=== PATIENT | female | born 1945 | race Caucasian/White ===

== ENCOUNTER 2017-06-10 19:42 | Inpatient (IN) | payer MEDICARE, BC ==
--- NOTE | 2017-06-10 19:58 | EDM.PDOC ---
ED HPI GENERAL MEDICAL PROBLEM - General Chief Complaint: Respiratory Problem Stated Complaint: SHORTNESS OF BREATH Time Seen by Provider: 06/10/17 19:58 Source of Information: Reports: Patient, Family (Daughter, ) History Limitations: Reports: No Limitations - History of Present Illness INITIAL COMMENTS - FREE TEXT/NARRATIVE: The patient's daughter states that the patient has chronic dyspnea on exertion ( the patient believes that it is due to scoliosis), but that she has been having worsening dyspnea on exertion over the past 3 weeks, and has had dyspnea even at rest for the past week. No wheezing, cough, fever, or chest pain. The patient has chronic orthopnea, due to CHF, and sleeps at an incline, but this has not changed recently. No recent nausea, vomiting, constipation, diarrhea, or urinary symptoms. The patient states that her pants have not been getting tighter recently, indeed, she states that she has lost 8 pounds over the past 1- 2 months. The patient wears bilateral knee-high compression socks, but has not noticed an increase in lower extremity edema recently. The patient has had similar symptoms in the past, prior to starting Lasix in late 2014. The patient's daughter states that an echocardiogram performed about one week ago MAY have shown a pulmonary hypertension, but that they have not been given the official read. The patient is to follow-up with a [employer] on 07/17/2017. The patient does not have a formal diagnosis of lung disease, and does not have oxygen at home. The patient has chronic atrial fibrillation, and is on Coumadin. - Related Data Allergies Allergy/AdvReac Type Severity Reaction Status Date / Time acetaminophen [From Percocet] Allergy Other Verified 02/05/15 13:54 levofloxacin Allergy Other Verified 02/05/15 13:54 oxycodone HCl [From Percocet] Allergy Other Verified 02/05/15 13:54 Home Meds: Home Meds Aspirin [Halfprin] 81 mg PO DAILY 02/02/15 [History] Chlorella 1,000 mg PO DAILY 02/02/15 [History] Furosemide [Lasix] 20 mg PO DAILY 02/02/15 [History] Garlic 1 cap PO DAILY 02/02/15 [History] Krill/Om-3/DHA/EPA/Phospho/Ast [Krill Oil 500 mg Softgel] 330 mg PO DAILY [History] Multivitamin [Multivitamins] 1 cap PO DAILY 02/02/15 [History] [place]-3 Fatty Acids [[place]-3] 1,000 mg PO DAILY 02/02/15 [History] Omeprazole [Prilosec] 20 mg PO DAILY 02/02/15 [History] Propranolol [Inderal LA] 80 mg PO BID 02/02/15 [History] Telmisartan [Micardis] 40 mg PO BEDTIME 02/02/15 [History] Ubidecarenone [COQ-10] 100 mg PO DAILY 02/02/15 [History] Warfarin Sodium [Coumadin] 7.5 mg PO DAILY 02/02/15 [History] Warfarin [Coumadin] 5 mg PO SUTUWETHSA 02/02/15 [History] Calcium Carb & Citrate/Vit D3 [Calcium + D3 ER Tablet] 1 tab PO DAILY 06/10/17 [ History] Past Medical History Cardiovascular History: Reports: Afib (chronic), Heart Failure Social & Family History - Tobacco Use Smoking Status *Q: Never Smoker - Alcohol Use Alcohol Use History: No - Recreational Drug Use Recreational Drug Use: No - Living Situation & Occupation Living situation: Reports: , with Spouse Occupation: Retired ED ROS GENERAL - Review of Systems Review Of Systems: ROS reveals no pertinent complaints other than HPI. ED EXAM, GENERAL - Physical Exam Exam: See Below Exam Limited By: No Limitations General Appearance: Alert, WD/WN, No Apparent Distress Eye Exam: Bilateral Eye: Normal Inspection Ears: Normal External Exam, Hearing Grossly Normal Nose: Normal Inspection, No Blood Throat/Mouth: Normal Inspection, Normal Lips, Normal Voice, No Airway Compromise Head: Atraumatic, Normocephalic Neck: Normal Inspection, Full Range of Motion Respiratory/Chest: No Respiratory Distress, No Accessory Muscle Use, Decreased Breath Sounds (throughout), Crackles (bilateral, to 3/4 up, greater at the bases ). No: Rhonchi, Wheezing, Prolonged Expiration Cardiovascular: Normal Peripheral Pulses, No Edema (bilateral knee-high compression stockings on), No Gallop, No JVD, No Murmur, No Rub, Irregularly Irregular (regular rate) Peripheral Pulses: 4+: Radial (L), Radial (R) GI/Abdominal: Normal Bowel Sounds, Soft, Non-Tender, No Organomegaly, No Distention, No Abnormal Bruit, No Mass (Female) Exam: Deferred Rectal (Female) Exam: Deferred Back Exam: Normal Inspection, Full Range of Motion, NT Extremities: Normal Inspection, Normal Range of Motion, No Pedal Edema, Normal Capillary Refill Neurological: Alert, Oriented, Normal Cognition, No Motor/Sensory Deficits Psychiatric: Normal Affect Skin Exam: Warm, Dry, Intact, Normal Color, No Rash EKG INTERPRETATION EKG Date: 06/10/17 Time: 19:57 Rhythm: A-Fib Rate (Beats/Min): 73 [place]: RAD-Right [place] Deviation P-Wave: Absent QRS: Normal ST-T: Normal QT: Normal Comparison: NA - No Prior EKG Course - Vital Signs Last Recorded V/S: Last Vital Signs Temp 36.0 C 06/10/17 19:49 Pulse 102 H 06/10/17 19:49 Resp 26 H 06/10/17 19:49 BP 167/108 H 06/10/17 19:49 Pulse Ox 80 L 06/10/17 19:49 - Orders/Labs/Meds Orders: Active Orders 24 hr Category Date Time Status EKG Documentation Completion [RC] ASDIRECTED Care 06/10/17 19:51 Active Chest 2V [CR] Stat Exams 06/10/17 20:21 Taken Chest w Cont [CT] Stat Exams 06/10/17 22:06 Taken CULTURE BLOOD [BC] Stat Lab 06/10/17 20:45 Received CULTURE BLOOD [BC] Stat Lab 06/10/17 20:45 Received Blood Culture x2 Reflex Set [OM.PC] Stat Oth 06/10/17 20:21 Ordered EKG 12 Lead [EK] Stat Ther 06/10/17 19:51 Ordered Labs: Laboratory Tests 06/10/17 06/10/17 06/10/17 Range/Units 20:45 20:45 20:45 WBC 15.45 H (3.98-10.04) K/mm3 RBC 4.63 (3.98-5.22) M/mm3 Hgb 13.3 (11.2-15.7) gm/L Hct 38.9 (34.1-44.9) % MCV 84.0 (79.4-94.8) fl MCH 28.7 (25.6-32.2) pg MCHC 34.2 (32.2-35.5) g/dl RDW Std Deviation 41.3 (36.4-46.3) fL Plt Count 324 (182-369) K/mm3 MPV 10.1 (9.4-12.3) fl Neutrophils % (Manual) 84 H (40-60) % Band Neutrophils % 0 (0-10) % Lymphocytes % (Manual) 8 L (20-40) % Atypical Lymphs % 0 % Monocytes % (Manual) 5 (2-10) % Eosinophils % (Manual) 3 (0.7-5.8) % Basophils % (Manual) 0 L (0.1-1.2) Platelet Estimate Adequate Plt Morphology Comment Normal RBC Morph Comment Normal PT 23.1 H (8.0-13.0) SECONDS INR 2.14 APTT 39 H (22-36) SECONDS D-Dimer, Quantitative < 0.19 L (0.19-0.59) mg/L Puncture Site ABG pH (7.35-7.45) ABG pCO2 (35.0-45.0) mmHg ABG pO2 (80.0-100.0) mmHg ABG HCO3 (22.0-26.0) meq/L ABG O2 Saturation (96.0-97.0) % ABG Base Excess (-2-2.0) Vikas Test A-a Gradient mmHg O2 Delivery Device Oxygen Flow Rate FiO2 (21.00-100.00) % Sodium 123 L (136-145) mEq/L Potassium 3.8 (3.5-5.1) mEq/L Chloride 84 L (98-107) mEq/L Carbon Dioxide 32 (21-32) mEq/L Anion Gap 10.8 (5-15) BUN 9 (7-18) mg/dL Creatinine 0.6 (0.55-1.02) mg/dL Est Cr Clr Drug Dosing 72.17 mL/min Estimated GFR (MDRD) > 60 (>60) mL/min BUN/Creatinine Ratio 15.0 (14-18) Glucose 123 H (80-115) mg/dL Lactic Acid (0.4-2.0) mmol/L Calcium 9.0 (8.5-10.1) mg/dL Total Bilirubin 2.2 H (0.2-1.0) mg/dL AST 20 (15-37) U/L ALT 25 (14-59) U/L Alkaline Phosphatase 55 (46-116) U/L Troponin I < 0.017 (0.00-0.056) ng/mL NT-Pro-B Natriuret Pep (0-125) pg/mL Total Protein 7.7 (6.4-8.2) g/dl Albumin 3.5 (3.4-5.0) g/dl Globulin 4.2 gm/dL Albumin/Globulin Ratio 0.8 L (1-2) 06/10/17 06/10/17 06/10/17 Range/Units 20:45 20:45 21:00 WBC (3.98-10.04) K/mm3 RBC (3.98-5.22) M/mm3 Hgb (11.2-15.7) gm/L Hct (34.1-44.9) % MCV (79.4-94.8) fl MCH (25.6-32.2) pg MCHC (32.2-35.5) g/dl RDW Std Deviation (36.4-46.3) fL Plt Count (182-369) K/mm3 MPV (9.4-12.3) fl Neutrophils % (Manual) (40-60) % Band Neutrophils % (0-10) % Lymphocytes % (Manual) (20-40) % Atypical Lymphs % % Monocytes % (Manual) (2-10) % Eosinophils % (Manual) (0.7-5.8) % Basophils % (Manual) (0.1-1.2) Platelet Estimate Plt Morphology Comment RBC Morph Comment PT (8.0-13.0) SECONDS INR APTT (22-36) SECONDS D-Dimer, Quantitative (0.19-0.59) mg/L Puncture Site Lt radial ABG pH 7.36 (7.35-7.45) ABG pCO2 61.8 H (35.0-45.0) mmHg ABG pO2 79.0 L (80.0-100.0) mmHg ABG HCO3 33.9 H (22.0-26.0) meq/L ABG O2 Saturation 95.6 L (96.0-97.0) % ABG Base Excess 6.9 H (-2-2.0) Vikas Test Positive A-a Gradient 23 mmHg O2 Delivery Device Nasal cannula Oxygen Flow Rate 2.0 FiO2 28.00 (21.00-100.00) % Sodium (136-145) mEq/L Potassium (3.5-5.1) mEq/L Chloride (98-107) mEq/L Carbon Dioxide (21-32) mEq/L Anion Gap (5-15) BUN (7-18) mg/dL Creatinine (0.55-1.02) mg/dL Est Cr Clr Drug Dosing mL/min Estimated GFR (MDRD) (>60) mL/min BUN/Creatinine Ratio (14-18) Glucose (80-115) mg/dL Lactic Acid 0.9 (0.4-2.0) mmol/L Calcium (8.5-10.1) mg/dL Total Bilirubin (0.2-1.0) mg/dL AST (15-37) U/L ALT (14-59) U/L Alkaline Phosphatase (46-116) U/L Troponin I (0.00-0.056) ng/mL NT-Pro-B Natriuret Pep 1736 H (0-125) pg/mL Total Protein (6.4-8.2) g/dl Albumin (3.4-5.0) g/dl Globulin gm/dL Albumin/Globulin Ratio (1-2) Meds: Medications Discontinued Medications Generic Name Dose Route Start Last Admin Trade Name Freq PRN Reason Stop Dose Admin Azithromycin 500 mg 06/11/17 00:11 Zithromax PO 06/11/17 00:12 ONETIME STA Iopamidol 80 ml 06/10/17 22:20 06/10/17 23:06 Isovue-300 (61%) IVPUSH 06/10/17 22:21 80 ml ONETIME ONE Administration - Re-Assessments/Exams Free Text/Narrative Re-Assessment/Exam: 06/10/17 20:40 Two-view chest radiograph reviewed. Cardiac silhouette is at the upper limits of normal, but minimal, if any, pulmonary vascular congestion to suggest decompensated CHF. No pleural effusions. No focal infiltrate. No pneumothorax. Significant thoracolumbar scoliosis, and kyphosis, noted. Formal read per the Radiologist pending. 06/10/17 21:14 The patient's ABG represents a chronic (compensated) respiratory acidosis. 06/10/17 22:11 Test results discussed with Dr. Gregorio at 21:59. There is no obvious expiration for the patient's progressively worsening dyspnea, however, her ECG shows a QRS axis of 111, with likely right ventricular hypertrophy. I suspect that the patient has pulmonary hypertension, and since the remainder of her workup is unremarkable, that is the most likely explanation for her symptoms. Dr. Gregorio does not feel that the patient requires admission to the hospital, but she is recommending a CT of the chest with IV contrast, which I have ordered. The patient may be slightly volume overloaded, therefore I have not ordered concomitant IV fluid. The patient's sodium returned low at 123. This is likely due to Lasix. Her WBC count is elevated at 50.45, but with 0% bandemia, and no findings suggestive of an infection. Presuming the CT scan of the chest does not discover any new findings, I will see if I can arrange for home oxygen for the patient on discharge. 06/10/17 23:32 CT of the chest with IV contrast is read by [facility] as: Small reticular nodular densities in the right midlung field best seen on axial images series 3, image 27 through 33. As per Fleischner Society guidelines for follow-up and management of pulmonary nodules: For patients at low risk (minimal or absent history of smoking and of other known risk factors), recommend follow-up chest CT at 12 months; if unchanged, no further follow-up. For patient at high risk (history of smoking or of other known risk factors), recommend initial follow-up chest CT at 6-12 months, then at 18-24 months if no interval change. Small focal rounded infiltrate in the left upper lobe posteriorly measuring 12 mm. Second small nodular infiltrate in the left upper lobe measuring 8 mm. small focal rounded infiltrate in the left upper lobe measuring 12 mm. Second small nodular infiltrate in the left upper lobe measuring 8 mm. these may represent areas of rounded pneumonia. I would recommend a follow-up CAT scan in approximate 4-6 weeks to verify stability or resolution (sic) (emphasis mine) 06/11/17 00:13 While the patient reports progressively worsening dyspnea on exertion, she has not had a cough or fever. She has an elevated WBC count, but no left shift. It is not clear that she has pneumonia, despite the CT findings, nevertheless, I believe it would be prudent to treat the patient for possible pneumonia. As the patient is allergic to Levaquin, I will start her on oral azithromycin. 06/11/17 00:29 Test results discussed with the patient, her daughter, and . They are concerned about the patient going home, primarily because the patient is so weak that she has difficulty walking, and arranging oxygen tonight would be difficult. Currently the patient's oxygen saturation is 93% on 1 L, but 87% on room air. Even if we were to send the patient home with an oxygen tank, it would only last 8 hours at 1 L/hr. Other arrangements will have to be made within 8 hours, which is not likely possible. The other option would be to have [employer] deliver oxygen to the patient's house, however, the patient would have to pay for that out of pocket until she qualified for home oxygen. Case re-discussed with Dr. Gregorio at 00:26. She believes that the patient would qualify for admission based on a diagnosis of pneumonia, hypoxemia, and hyponatremia. Departure - Departure Time of Disposition: 00:30 Disposition: Admitted As Inpatient 68 Condition: Fair Clinical Impression: Pneumonia, Hypoxemia, Hyponatremia - Discharge Information - My Orders Last 24 Hours: My Active Orders 06/10/17 19:51 EKG Documentation Completion [RC] ASDIRECTED EKG 12 Lead [EK] Stat 06/10/17 20:21 Chest 2V [CR] Stat Blood Culture x2 Reflex Set [OM.PC] Stat 06/10/17 20:45 CULTURE BLOOD [BC] Stat CULTURE BLOOD [BC] Stat 06/10/17 22:06 Chest w Cont [CT] Stat - Assessment/Plan Last 24 Hours: My Active Orders 06/10/17 19:51 EKG Documentation Completion [RC] ASDIRECTED EKG 12 Lead [EK] Stat 06/10/17 20:21 Chest 2V [CR] Stat Blood Culture x2 Reflex Set [OM.PC] Stat 06/10/17 20:45 CULTURE BLOOD [BC] Stat CULTURE BLOOD [BC] Stat 06/10/17 22:06 Chest w Cont [CT] Stat
[2017-06-10] MEDS ORDERED: Iopamidol 612 MG/ML 100 ML Bottle IVPUSH ONE (22:20)
[2017-06-11] MEDS ORDERED: Azithromycin 250 MG Tab PO STA (00:11)
[2017-06-11] MEDS ORDERED: Acetaminophen 325 MG Tab PO PRN (01:12)
[2017-06-11] MEDS ORDERED: Albuterol 0.083% 2.5 MG/3 ML Neb Soln NEB PRN (01:12)
[2017-06-11] MEDS ORDERED: Temazepam 7.5 MG Cap PO PRN (01:12)
[2017-06-11] MEDS ORDERED: Sodium Chloride 0.9% 1,000 ML IV SCH (01:30)
[2017-06-11] MEDS ORDERED: Enoxaparin 30 MG/0.3 ML Syringe SUBCUT SCH (06:00)
[2017-06-11] MEDS ORDERED: Enoxaparin 40 MG/0.4 ML Syringe SUBCUT SCH (06:00)
--- NOTE | 2017-06-11 07:16 | CT ---
CT chest Technique: Multiple axial sections were obtained through the chest. Intravenous contrast was utilized. Comparison: Prior chest x-ray performed earlier on the same date (8:20 PM) Heart size mildly enlarged. No pericardial thickening is seen. Mediastinum shows small lymph nodes which are felt to be within normal limits. Low-density lesions are seen within the liver. Largest lesion has Hounsfield unit measurements of cysts and measures about 1.8 cm. Other smaller findings most likely of similar etiology. Surgical clips seen from prior cholecystectomy. Multiple nodular densities are seen within the chest. Hazy ground-glass appearance seen throughout both sides of the chest. Bone window settings were reviewed which show scattered degenerative change within the spine with scoliosis. Impression: 1. Small scattered nodular densities as well as ground-glass appearance within both lungs. Recommend treatment as a pneumonia and follow-up chest CT in 6 months to further evaluate for stability. Difficult at this time to exclude neoplasm as an etiology for the nodules. 2. Other incidental findings as noted above. Diagnostic code #9 I agree with preliminary report issued by [facility] ([facility] preliminary report dictated on 06/11/17, 12:25 AM Central Time)
--- NOTE | 2017-06-11 07:16 | CR ---
Chest: Two views of the chest were obtained. Comparison: No prior chest x-ray. Lung markings are slightly increased. No alveolar type densities are seen. Heart size is mildly enlarged. Slight tortuosity of the thoracic aorta is seen. Scoliosis is noted within the spine with mild degenerative change and kyphosis. Impression: 1. Slight increased lung markings possibly due to mild pulmonary vascular congestion. Mild cardiomegaly is noted. 2. Other incidental findings as noted above. Diagnostic code #3
[2017-06-11] MEDS ORDERED: Sodium Chloride 0.9% 250 ML ONE (08:07)
[2017-06-11] MEDS: Azithromycin 500 MG in Sodium Chloride 0.9% 250 ML IV SCH (08:48)
[2017-06-11] MEDS ORDERED: Azithromycin 500 MG AdvVial IV SCH (09:00)
[2017-06-11] MEDS: Albuterol/Ipratropium 3.0-0.5 MG/3 ML Neb Soln NEB SCH ×4 (09:07→20:41)
[2017-06-11] MEDS ORDERED: Warfarin 5 MG Tab PO SCH (11:45)
[2017-06-11] MEDS ORDERED: Ondansetron 4 MG Tab.DIS PO PRN (11:49)
[2017-06-11] MEDS ORDERED: Docusate Sodium 100 MG Cap PO PRN (11:49)
[2017-06-11] MEDS ORDERED: Ondansetron 4 MG/2 ML SDV IV PRN (11:49)
[2017-06-11] MEDS ORDERED: Magnesium Hydroxide 400 MG/5 ML Susp 30 ML Cup PO PRN (11:49)
[2017-06-11] MEDS ORDERED: Furosemide 20 MG Tab PO SCH (12:00)
[2017-06-11] MEDS ORDERED: Magnesium Oxide 400 MG Tab PO ONE (12:35)
[2017-06-11] MEDS: Aspirin 81 MG Tab.EC PO SCH (13:56)
[2017-06-11] MEDS: cefTRIAXone 2 GM in Sodium Chloride 0.9% 100 ML IV SCH (13:57)
[2017-06-11] MEDS: Potassium Chloride/Sodium Chloride Tab PO SCH ×2 (14:32→20:32)
--- NOTE | 2017-06-11 14:42 | PCM.HP ---
H&P History of Present Illness - General Date of Service: 06/11/17 Admit Problem/Dx: Admission Diagnosis/Problem Admission Diagnosis/Problem Pneumonia Source of Information: Patient, Family, Other (ED notes) History Limitations: Reports: No Limitations - History of Present Illness Initial Comments - Free Text/Narative: Aileen is a pleasant 72-year-old female admitted through the emergency room last night with pneumonia, hypoxia, dyspnea on exertion and orthopnea. The patient's daughter states that she has chronic shortness of breath and dyspnea on exertion (the patient believes that it is due to scoliosis), but that she has been progressively worsening over the past 2-3 weeks, to the point that patient has dyspnea even at rest for the past week. No wheezing, cough, fever, or chest pain. She has also had orthopnea and has had to sleep upright in the chair, not getting much rest the past week or so. No recent nausea, vomiting, constipation, diarrhea, or urinary symptoms. The patient states that her pants have not been getting tighter recently. Patient reports that she has actually lost 8 pounds over the past 1-2 months. The patient wears bilateral knee-high compression socks, but has not noticed an increase in lower extremity edema recently. The patient has had similar symptoms in the past, prior to starting Lasix in late 2014. PCP is Hermila Sheets in [place]. She did see Hermila last week for this worsening dyspnea. The patient did undergo testing including echocardiogram, what sounds like pulmonary function tests and other workup which was done between [place] and [facility]. The patient's daughter states that an echocardiogram performed during this time may have shown a pulmonary hypertension, but that they have not been given the official report. The patient is to follow-up/consult with a Technical Rep on 07/17/2017 for these ongoing symptoms. She does have history of atrial fibrillation on chronic Coumadin therapy, also reports a mitral valve problem and sees [facility] in [place]. Maria Elena Castro. The patient does not have a formal diagnosis of lung disease, and does not have oxygen at home. Again PCP is Hermila Sheets in [place]. Patient is full CODE STATUS Onset of Symptoms: Reports: Gradual (2-3 wks) Duration of Symptoms: Reports: Getting Worse Location: Reports: Chest Improves with: Reports: None Worsens with: Reports: Movement (exertion) Associated Symptoms: Reports: Loss of Appetite, Malaise, Shortness of Breath, Weakness. Denies: Confusion, Chest Pain, Cough, cough w sputum, Diaphoresis, Fever/Chills, Headaches, Nausea/Vomiting, Rash, Syncope - Related Data Allergies/Adverse Reactions: Allergies Allergy/AdvReac Type Severity Reaction Status Date / Time latex Allergy Unknown Cannot Verified 06/11/17 18:57 Remember levofloxacin Allergy Other Verified 02/05/15 13:54 oxycodone HCl [From Percocet] Allergy Other Verified 02/05/15 13:54 Home Medications: Home Meds Aspirin [Halfprin] 81 mg PO DAILY 02/02/15 [History] Chlorella 1,000 mg PO DAILY 02/02/15 [History] Furosemide [Lasix] 20 mg PO DAILY 02/02/15 [History] Garlic 1 cap PO DAILY 02/02/15 [History] Krill/Om-3/DHA/EPA/Phospho/Ast [Krill Oil 500 mg Softgel] 330 mg PO DAILY [History] Multivitamin [Multivitamins] 1 cap PO DAILY 02/02/15 [History] [place]-3 Fatty Acids [[place]-3] 1,000 mg PO DAILY 02/02/15 [History] Omeprazole [Prilosec] 20 mg PO DAILY 02/02/15 [History] Propranolol [Inderal LA] 80 mg PO BID 02/02/15 [History] Telmisartan [Micardis] 40 mg PO BEDTIME 02/02/15 [History] Ubidecarenone [COQ-10] 100 mg PO DAILY 02/02/15 [History] Warfarin Sodium [Coumadin] 7.5 mg PO MOFR 02/02/15 [History] Warfarin [Coumadin] 5 mg PO SUTUWETHSA 02/02/15 [History] Calcium Carb & Citrate/Vit D3 [Calcium + D3 ER Tablet] 1 tab PO DAILY 06/10/17 [ History] Past Medical History Cardiovascular History: Reports: Afib (chronic), Heart Failure Other Cardiovascular History: mitral valve prolapse Gastrointestinal History: Reports: GERD Oncologic (Cancer) History: Reports: Other (See Below) 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 Denies: Fever, Chills HEENT: Reports: Post Nasal Drip, Sinus Congestion. Denies: Dysphasia, Headaches , Sore Throat, Vertigo Pulmonary: Reports: Shortness of Breath. Denies: Wheezing, Pleuritic Chest Pain , Cough, Sputum, Hemoptysis Cardiovascular: Reports: Dyspnea on Exertion, Orthopnea. Denies: Chest Pain, Palpitations, Lightheadedness, Syncope Gastrointestinal: Reports: No Symptoms Genitourinary: Reports: No Symptoms Musculoskeletal: Reports: Other (generalized muscle weakness) Skin: Reports: No Symptoms Psychiatric: Reports: No Symptoms Neurological: Reports: Difficulty Walking (due to generalized weakness), Weakness. Denies: Confusion, Dizziness, Headache, Numbness, Tingling Exam - Exam Exam: See Below - Vital Signs Vital Signs: Last Vital Signs Temp 98.4 F 06/11/17 11:20 Pulse 81 06/11/17 11:20 Resp 20 06/11/17 11:20 BP 130/95 H 06/11/17 11:20 Pulse Ox 95 06/11/17 11:49 Weight: 166 lb - Exam Quality Assessment: Supplemental Oxygen, DVT Prophylaxis General: Alert, Oriented, Cooperative, Other (very pleasant and talkative but is mildly SOB with carrying on normal conversation despite supplemental O2 at 3L at time of exam) HEENT: Conjunctiva Clear, EOMI, Hearing Intact, Mucosa Moist & [place], Pupils Equal, Pupils Reactive, PERRLA Neck: Supple Lungs: Normal Respiratory Effort, Decreased Breath Sounds, Wheezing (mild to lower lobes). No: Crackles, Rales, Rub Cardiovascular: Irregular Rhythm GI/Abdominal Exam: Normal Bowel Sounds, Soft, Non-Tender (Female) Exam: Deferred Rectal (Female) Exam: Deferred Back Exam: Normal Inspection Extremities: No Pedal Edema, Normal Capillary Refill, Other (wearing teds bilat) Peripheral Pulses: 1+: Dorsalis Pedis (L), Dorsalis Pedis (R) Skin: Warm, Dry, Intact Neurological: Cranial Nerves Intact Neuro Extensive - Mental Status: Alert, Oriented x3, Normal Mood/Affect, Normal Cognition, Memory Intact Psychiatric: Alert, Normal Affect, Normal Mood - Patient Data Lab Results Last 24 hrs: Laboratory Results - last 24 hr 06/10/17 06/10/17 06/10/17 Range/Units 20:45 20:45 20:45 WBC 15.45 H (3.98-10.04) K/mm3 RBC 4.63 (3.98-5.22) M/mm3 Hgb 13.3 (11.2-15.7) gm/L Hct 38.9 (34.1-44.9) % MCV 84.0 (79.4-94.8) fl MCH 28.7 (25.6-32.2) pg MCHC 34.2 (32.2-35.5) g/dl RDW Std Deviation 41.3 (36.4-46.3) fL Plt Count 324 (182-369) K/mm3 MPV 10.1 (9.4-12.3) fl Neut % (Auto) (34.0-71.1) % Lymph % (Auto) (19.3-51.7) % Esmeralda % (Auto) (4.7-12.5) % Eos % (Auto) (0.7-5.8) Baso % (Auto) (0.1-1.2) % Neut # (Auto) (1.56-6.13) K/mm3 Lymph # (Auto) (1.18-3.74) K/mm3 Esmeralda # (Auto) (0.24-0.36) K/mm3 Eos # (Auto) (0.04-0.36) K/mm3 Baso # (Auto) (0.01-0.08) K/mm3 Neutrophils % (Manual) 84 H (40-60) % Band Neutrophils % 0 (0-10) % Lymphocytes % (Manual) 8 L (20-40) % Atypical Lymphs % 0 % Monocytes % (Manual) 5 (2-10) % Eosinophils % (Manual) 3 (0.7-5.8) % Basophils % (Manual) 0 L (0.1-1.2) Platelet Estimate Adequate Plt Morphology Comment Normal RBC Morph Comment Normal PT 23.1 H (8.0-13.0) SECONDS INR 2.14 APTT 39 H (22-36) SECONDS D-Dimer, Quantitative < 0.19 L (0.19-0.59) mg/L Puncture Site ABG pH (7.35-7.45) ABG pCO2 (35.0-45.0) mmHg ABG pO2 (80.0-100.0) mmHg ABG HCO3 (22.0-26.0) meq/L ABG O2 Saturation (96.0-97.0) % ABG Base Excess (-2-2.0) Vikas Test A-a Gradient mmHg O2 Delivery Device Oxygen Flow Rate FiO2 (21.00-100.00) % Sodium 123 L (136-145) mEq/L Potassium 3.8 (3.5-5.1) mEq/L Chloride 84 L (98-107) mEq/L Carbon Dioxide 32 (21-32) mEq/L Anion Gap 10.8 (5-15) BUN 9 (7-18) mg/dL Creatinine 0.6 (0.55-1.02) mg/dL Est Cr Clr Drug Dosing 72.17 mL/min Estimated GFR (MDRD) > 60 (>60) mL/min BUN/Creatinine Ratio 15.0 (14-18) Glucose 123 H (80-115) mg/dL Lactic Acid (0.4-2.0) mmol/L Calcium 9.0 (8.5-10.1) mg/dL Magnesium (1.8-2.4) mg/dl Total Bilirubin 2.2 H (0.2-1.0) mg/dL AST 20 (15-37) U/L ALT 25 (14-59) U/L Alkaline Phosphatase 55 (46-116) U/L Troponin I < 0.017 (0.00-0.056) ng/mL C-Reactive Protein (<1.0) mg/dL NT-Pro-B Natriuret Pep (0-125) pg/mL Total Protein 7.7 (6.4-8.2) g/dl Albumin 3.5 (3.4-5.0) g/dl Globulin 4.2 gm/dL Albumin/Globulin Ratio 0.8 L (1-2) Mycoplasma pneumon IgM (NEGATIVE) 06/10/17 06/10/17 06/10/17 Range/Units 20:45 20:45 21:00 WBC (3.98-10.04) K/mm3 RBC (3.98-5.22) M/mm3 Hgb (11.2-15.7) gm/L Hct (34.1-44.9) % MCV (79.4-94.8) fl MCH (25.6-32.2) pg MCHC (32.2-35.5) g/dl RDW Std Deviation (36.4-46.3) fL Plt Count (182-369) K/mm3 MPV (9.4-12.3) fl Neut % (Auto) (34.0-71.1) % Lymph % (Auto) (19.3-51.7) % Esmeralda % (Auto) (4.7-12.5) % Eos % (Auto) (0.7-5.8) Baso % (Auto) (0.1-1.2) % Neut # (Auto) (1.56-6.13) K/mm3 Lymph # (Auto) (1.18-3.74) K/mm3 Esmeralda # (Auto) (0.24-0.36) K/mm3 Eos # (Auto) (0.04-0.36) K/mm3 Baso # (Auto) (0.01-0.08) K/mm3 Neutrophils % (Manual) (40-60) % Band Neutrophils % (0-10) % Lymphocytes % (Manual) (20-40) % Atypical Lymphs % % Monocytes % (Manual) (2-10) % Eosinophils % (Manual) (0.7-5.8) % Basophils % (Manual) (0.1-1.2) Platelet Estimate Plt Morphology Comment RBC Morph Comment PT (8.0-13.0) SECONDS INR APTT (22-36) SECONDS D-Dimer, Quantitative (0.19-0.59) mg/L Puncture Site Lt radial ABG pH 7.36 (7.35-7.45) ABG pCO2 61.8 H (35.0-45.0) mmHg ABG pO2 79.0 L (80.0-100.0) mmHg ABG HCO3 33.9 H (22.0-26.0) meq/L ABG O2 Saturation 95.6 L (96.0-97.0) % ABG Base Excess 6.9 H (-2-2.0) Vikas Test Positive A-a Gradient 23 mmHg O2 Delivery Device Nasal cannula Oxygen Flow Rate 2.0 FiO2 28.00 (21.00-100.00) % Sodium (136-145) mEq/L Potassium (3.5-5.1) mEq/L Chloride (98-107) mEq/L Carbon Dioxide (21-32) mEq/L Anion Gap (5-15) BUN (7-18) mg/dL Creatinine (0.55-1.02) mg/dL Est Cr Clr Drug Dosing mL/min Estimated GFR (MDRD) (>60) mL/min BUN/Creatinine Ratio (14-18) Glucose (80-115) mg/dL Lactic Acid 0.9 (0.4-2.0) mmol/L Calcium (8.5-10.1) mg/dL Magnesium (1.8-2.4) mg/dl Total Bilirubin (0.2-1.0) mg/dL AST (15-37) U/L ALT (14-59) U/L Alkaline Phosphatase (46-116) U/L Troponin I (0.00-0.056) ng/mL C-Reactive Protein (<1.0) mg/dL NT-Pro-B Natriuret Pep 1736 H (0-125) pg/mL Total Protein (6.4-8.2) g/dl Albumin (3.4-5.0) g/dl Globulin gm/dL Albumin/Globulin Ratio (1-2) Mycoplasma pneumon IgM (NEGATIVE) 06/11/17 06/11/17 06/11/17 Range/Units 05:25 05:25 05:28 WBC 10.65 H (3.98-10.04) K/mm3 RBC 4.26 (3.98-5.22) M/mm3 Hgb 12.5 (11.2-15.7) gm/L Hct 36.3 (34.1-44.9) % MCV 85.2 (79.4-94.8) fl MCH 29.3 (25.6-32.2) pg MCHC 34.4 (32.2-35.5) g/dl RDW Std Deviation 41.1 (36.4-46.3) fL Plt Count 289 (182-369) K/mm3 MPV 9.7 (9.4-12.3) fl Neut % (Auto) 79.2 H (34.0-71.1) % Lymph % (Auto) 10.3 L (19.3-51.7) % Esmeralda % (Auto) 10.0 (4.7-12.5) % Eos % (Auto) 0.3 L (0.7-5.8) Baso % (Auto) 0.2 (0.1-1.2) % Neut # (Auto) 8.43 H (1.56-6.13) K/mm3 Lymph # (Auto) 1.10 L (1.18-3.74) K/mm3 Esmeralda # (Auto) 1.07 H (0.24-0.36) K/mm3 Eos # (Auto) 0.03 L (0.04-0.36) K/mm3 Baso # (Auto) 0.02 (0.01-0.08) K/mm3 Neutrophils % (Manual) (40-60) % Band Neutrophils % (0-10) % Lymphocytes % (Manual) (20-40) % Atypical Lymphs % % Monocytes % (Manual) (2-10) % Eosinophils % (Manual) (0.7-5.8) % Basophils % (Manual) (0.1-1.2) Platelet Estimate Plt Morphology Comment RBC Morph Comment PT (8.0-13.0) SECONDS INR APTT (22-36) SECONDS D-Dimer, Quantitative (0.19-0.59) mg/L Puncture Site ABG pH (7.35-7.45) ABG pCO2 (35.0-45.0) mmHg ABG pO2 (80.0-100.0) mmHg ABG HCO3 (22.0-26.0) meq/L ABG O2 Saturation (96.0-97.0) % ABG Base Excess (-2-2.0) Vikas Test A-a Gradient mmHg O2 Delivery Device Oxygen Flow Rate FiO2 (21.00-100.00) % Sodium 125 L (136-145) mEq/L Potassium 3.8 (3.5-5.1) mEq/L Chloride 87 L (98-107) mEq/L Carbon Dioxide 34 H (21-32) mEq/L Anion Gap 7.8 (5-15) BUN 8 (7-18) mg/dL Creatinine 0.5 L (0.55-1.02) mg/dL Est Cr Clr Drug Dosing 86.60 mL/min Estimated GFR (MDRD) > 60 (>60) mL/min BUN/Creatinine Ratio 16.0 (14-18) Glucose 114 (80-115) mg/dL Lactic Acid 0.5 (0.4-2.0) mmol/L Calcium 8.4 L (8.5-10.1) mg/dL Magnesium 1.6 L (1.8-2.4) mg/dl Total Bilirubin (0.2-1.0) mg/dL AST (15-37) U/L ALT (14-59) U/L Alkaline Phosphatase (46-116) U/L Troponin I (0.00-0.056) ng/mL C-Reactive Protein 2.3 H* (<1.0) mg/dL NT-Pro-B Natriuret Pep (0-125) pg/mL Total Protein (6.4-8.2) g/dl Albumin (3.4-5.0) g/dl Globulin gm/dL Albumin/Globulin Ratio (1-2) Mycoplasma pneumon IgM Negative (NEGATIVE) Result Diagrams: 06/13/17 04:30 06/12/17 06:35 Reynaldo Results Last 24 hrs: Microbiology 06/11/17 03:25 Influenza Type A Antigen Screen - Final Nasal, Unspecified NEGATIVE INFLUENZA A VIRUS AG Influenza Type B Antigen Screen - Final NEGATIVE INFLUENZA B VIRUS AG - Problem List (1) Pneumonia SNOMED Code(s): 474761491 ICD Code: J18.9 - PNEUMONIA, UNSPECIFIED ORGANISM Status: Acute Priority : High Current Visit: Yes Qualifiers: Pneumonia type: due to unspecified organism Laterality: bilateral Lung location: unspecified part of lung Qualified Code(s): J18.9 - Pneumonia, unspecified organism (2) Hypoxemia SNOMED Code(s): 676808677 ICD Code: R09.02 - HYPOXEMIA Status: Acute Priority: High Current Visit : Yes (3) Hyponatremia SNOMED Code(s): 05547597 ICD Code: E87.1 - HYPO-OSMOLALITY AND HYPONATREMIA Status: Acute Priority : High Current Visit: Yes (4) Generalized weakness SNOMED Code(s): 28048194 ICD Code: R53.1 - WEAKNESS Status: Acute Priority: High Current Visit: Yes (5) Pulmonary nodules/lesions, multiple SNOMED Code(s): 582183175 ICD Code: R91.8 - OTHER NONSPECIFIC ABNORMAL FINDING OF LUNG FIELD Status: Acute Priority: High Current Visit: Yes Problem List Initiated/Reviewed/Updated: Yes Orders Last 24hrs: Active Orders 24 hr Category Date Time Status Admission Status [Patient Status] [ADT] Routine ADT 06/11/17 00:56 Active Ambulate [RC] QSHIFT Care 06/11/17 11:49 Active Antiembolic Devices [RC] BID Care 06/11/17 01:13 Active EKG Documentation Completion [RC] ASDIRECTED Care 06/10/17 19:51 Active Height and Weight [RC] DAILY Care 06/11/17 11:49 Active Intake and Output [RC] QSHIFT Care 06/11/17 11:51 Active Oxygen Therapy Adult [Oxygen Therapy] [RC] ASDIRECTED Care 06/11/17 01:28 Active Oxygen Therapy [RC] PRN Care 06/11/17 11:49 Active RT Aerosol Therapy [RC] ASDIRECTED Care 06/11/17 01:14 Active Up With Assistance [RC] ASDIRECTED Care 06/11/17 11:49 Active VTE/DVT Education [RC] PER UNIT ROUTINE Care 06/11/17 11:49 Active Vital Signs [RC] Q4H Care 06/11/17 11:49 Active Consult to Case Management [CONS] Routine Cons 06/11/17 01:12 Active OT Evaluation and Treatment [CONS] Routine Cons 06/11/17 01:12 Active PT Evaluation and Treatment [CONS] Routine Cons 06/11/17 01:12 Active Heart Healthy Diet [DIET] Diet 06/11/17 Dinner Active Chest 2V [CR] AM Exams 06/12/17 05:11 Ordered BASIC METABOLIC PANEL,BMP [CHEM] AM Lab 06/12/17 05:11 Ordered BASIC METABOLIC PANEL,BMP [CHEM] AM Lab 06/13/17 05:11 Ordered BASIC METABOLIC PANEL,BMP [CHEM] AM Lab 06/14/17 05:11 Ordered BASIC METABOLIC PANEL,BMP [CHEM] AM Lab 06/15/17 05:11 Ordered C-REACTIVE PROTEIN [CHEM] AM Lab 06/12/17 05:11 Ordered C-REACTIVE PROTEIN [CHEM] AM Lab 06/13/17 05:11 Ordered C-REACTIVE PROTEIN [CHEM] AM Lab 06/14/17 05:11 Ordered C-REACTIVE PROTEIN [CHEM] AM Lab 06/15/17 05:11 Ordered CBC WITH AUTO DIFF [HEME] AM Lab 06/12/17 05:11 Ordered CBC WITH AUTO DIFF [HEME] AM Lab 06/13/17 05:11 Ordered CBC WITH AUTO DIFF [HEME] AM Lab 06/14/17 05:11 Ordered CBC WITH AUTO DIFF [HEME] AM Lab 06/15/17 05:11 Ordered CULTURE BLOOD [BC] Stat Lab 06/10/17 20:45 Received CULTURE BLOOD [BC] Stat Lab 06/10/17 20:45 Received INFLUENZA A,B, H1N1 BY PCR [MREF] Routine Lab 06/11/17 01:12 Ordered INR,PT,PROTHROMBIN TIME [COAG] AM Lab 06/12/17 05:11 Ordered INR,PT,PROTHROMBIN TIME [COAG] AM Lab 06/13/17 05:11 Ordered INR,PT,PROTHROMBIN TIME [COAG] AM Lab 06/14/17 05:11 Ordered INR,PT,PROTHROMBIN TIME [COAG] AM Lab 06/15/17 05:11 Ordered MAGNESIUM [CHEM] AM Lab 06/12/17 05:11 Ordered MAGNESIUM [CHEM] AM Lab 06/13/17 05:11 Ordered MAGNESIUM [CHEM] AM Lab 06/14/17 05:11 Ordered MAGNESIUM [CHEM] AM Lab 06/15/17 05:11 Ordered RESPIRATORY PANEL BY PCR [MREF] Routine Lab 06/11/17 03:25 Ordered Acetaminophen [Tylenol] Med 06/11/17 01:12 Active 650 mg PO Q6H PRN Albuterol [Proventil Neb Soln] Med 06/11/17 01:12 Active 2.5 mg NEB Q4HRRT PRN Albuterol/Ipratropium [DuoNeb 3.0-0.5 MG/3 ML] Med 06/11/17 03:00 Active 3 ml NEB Q6HRRT Aspirin [Halfprin] Med 06/11/17 11:45 Active 81 mg PO DAILY Azithromycin [Zithromax] 500 mg Med 06/11/17 09:00 Active Sodium Chloride 0.9% [Normal Saline] 250 ml IV Q24H Docusate Sodium [Colace] Med 06/11/17 11:49 Active 100 mg PO BID PRN Enoxaparin [Lovenox] Med 06/11/17 06:00 Active 40 mg SUBCUT Q24H Furosemide [Lasix] Med 06/11/17 12:00 Active 20 mg PO DAILY Losartan [Cozaar] Med 06/11/17 21:00 Active 50 mg PO BEDTIME Magnesium Hydroxide [Milk of Magnesia] Med 06/11/17 11:49 Active 30 ml PO Q12H PRN Multivitamins,Therapeutic [Thera] Med 06/12/17 09:00 Active 1 each PO DAILY Ondansetron [Zofran ODT] Med 06/11/17 11:49 Active 4 mg PO Q4H PRN Ondansetron [Zofran] Med 06/11/17 11:49 Active 4 mg IV Q4H PRN Pantoprazole [ProTONIX] Med 06/12/17 09:00 Active 40 mg PO DAILY Potassium Chloride/NaCl [Thermotabs] Med 06/11/17 14:15 Active 1 each PO BID Propranolol [Inderal LA] Med 06/11/17 21:00 Active 80 mg PO BID Sodium Chloride 0.9% [Normal Saline] 1,000 ml Med 06/11/17 01:30 Active IV ASDIRECTED Temazepam [Restoril] Med 06/11/17 01:12 Active 7.5 mg PO BEDTIME PRN Warfarin Pharmacy to Dose [Pharmacy to Dose - Warfarin] Med 06/11/17 12:45 Active 1 dose .XX ASDIRECTED Warfarin [Coumadin] Med 06/11/17 18:00 Active 5 mg PO SUTUWETHSA Warfarin [Coumadin] Med 06/14/17 18:00 Active 7.5 mg PO MoFr cefTRIAXone [Rocephin] 2 gm Med 06/11/17 14:00 Active Sodium Chloride 0.9% [Normal Saline] 100 ml IV Q24H Antiembolic Hose [OM.PC] Routine Oth 06/11/17 01:12 Ordered Blood Culture x2 Reflex Set [OM.PC] Stat Oth 06/10/17 20:21 Ordered Resuscitation Status Routine Resus Stat 06/11/17 11:49 Ordered EKG 12 Lead [EK] Stat Ther 06/10/17 19:51 Ordered Medication Orders Acetaminophen (Tylenol) 650 mg PO Q6H PRN PRN Reason: fever/pain Albuterol (Proventil Neb Soln) 2.5 mg NEB Q4HRRT PRN PRN Reason: sob Albuterol/Ipratropium (Duoneb 3.0-0.5 Mg/3 Ml) 3 ml NEB Q6HRRT [facility] Last Admin: 06/11/17 10:15 Dose: Admin: 06/11/17 09:07 Dose: 3 ml Aspirin (Halfprin) 81 mg PO DAILY [facility] Last Admin: 06/11/17 13:56 Dose: 81 mg Docusate Sodium (Colace) 100 mg PO BID PRN PRN Reason: Constipation Enoxaparin Sodium (Lovenox) 40 mg SUBCUT Q24H [facility] Last Admin: 06/11/17 09:37 Dose: Not Given Furosemide (Lasix) 20 mg PO DAILY [facility] Last Admin: 06/11/17 13:56 Dose: 20 mg Ceftriaxone Sodium 2 gm/ (Sodium Chloride) 100 mls @ 100 mls/hr IV Q24H [facility] Last Admin: 06/11/17 13:57 Dose: 100 mls/hr Sodium Chloride (Normal Saline) 1,000 mls @ 100 mls/hr IV ASDIRECTED [facility] Last Admin: 06/11/17 13:55 Dose: 100 mls/hr Azithromycin 500 mg/ Sodium (Chloride) 250 mls @ 250 mls/hr IV Q24H [facility] Last Admin: 06/11/17 08:48 Dose: 250 mls/hr Losartan Potassium (Cozaar) 50 mg PO BEDTIME [facility] Magnesium Hydroxide (Milk Of Magnesia) 30 ml PO Q12H PRN PRN Reason: Constipation Multivitamins (Thera) 1 each PO DAILY [facility] Ondansetron HCl (Zofran Odt) 4 mg PO Q4H PRN PRN Reason: nausea, able to take PO Ondansetron HCl (Zofran) 4 mg IV Q4H PRN PRN Reason: Nausea/Vomiting Oral Electrolytes (Thermotabs) 1 each PO BID [facility] Last Admin: 06/11/17 14:32 Dose: 1 each Pantoprazole Sodium (Protonix) 40 mg PO DAILY [facility] Propranolol HCl (Inderal La) 80 mg PO BID [facility] Temazepam (Restoril) 7.5 mg PO BEDTIME PRN PRN Reason: Insomnia Warfarin Sodium (Coumadin) 7.5 mg PO MoFr COMFORT Warfarin Sodium (Coumadin) 5 mg PO SUTUWETHSA COMFORT Warfarin Sodium (Pharmacy To Dose - Warfarin) 1 dose .XX ASDIRECTED [facility] Assessment/Plan Comment:: I/P: Acute Pneumonia- via chest CT -Rocephin and zithromax, will add zosyn for more atypical coverage with nodules and ground glass appearance -Supplemental O2 to keep saturations >90% -RT/Nebs/IS/FV -Repeat CXR tomorrow -Mycoplasma, s. pneumo, Resp viral panel ordered -IVF -Follow labs, CBC, CRP Multiple nodules noted in bilateral lungs on chest CT -? etiology; will treat as PNA initially but will need repeat CT and Pulmonology follow up -Discussed multiple nodules with patient and family today and that is essential that she have follow up of these, could be mass/cancer but will treat for PNA for now and follow up with CT with PCP or Pulmonology. Hypoxia -As above -Consider steroids- will discuss with Dr. Gregorio Hyponatremia -IVF with NS initially -May consider thermotabs if needed ? Hx of CHF -Obtain echo report that was done last week -Cont lasix 20mg daily for now, may need to DC pending sodium status. Generalized weakness -Etiology likely infectious as above however with multiple nodules noted on chest CT and weight loss concern for malignancy -Will check TSH and vit D levels -PT/OT Chronic: Other: GI/DVT prophylax daily labs RT/PT/OT CM for assist with DC planning- patient lives at home with and is with good family support. PCP is Hermila Sheets in [place] Patient is Full code status.
[2017-06-11] MEDS: Warfarin 5 MG Tab PO SCH (19:35)
[2017-06-11] MEDS: Propranolol 80 MG Cap.ER PO SCH (20:33)
[2017-06-11] MEDS: Losartan 100 MG Tab PO SCH (20:33)
[2017-06-12] MEDS: Albuterol/Ipratropium 3.0-0.5 MG/3 ML Neb Soln NEB SCH ×4 (02:33→21:16)
[2017-06-12] MEDS ORDERED: Furosemide 40 MG/4 ML VIAL IVPUSH ONE (07:27)
[2017-06-12] MEDS: methylPREDNISolone Sodium Succinate 40 MG/1 ML SDV IVPUSH SCH ×2 (07:55→20:06)
[2017-06-12] MEDS: Potassium Chloride/Sodium Chloride Tab PO SCH (09:20)
--- NOTE | 2017-06-12 09:31 | PCM.PN ---
- General Info Date of Service: 06/12/17 Functional Status: Reports: Pain Controlled, Tolerating Diet, Ambulating, Urinating, Incentive Spirometry. Denies: New Symptoms - Review of Systems General: Reports: Weakness, Fatigue (improved), Malaise. Denies: Fever HEENT: Reports: No Symptoms Pulmonary: Reports: Shortness of Breath. Denies: Cough, Sputum Cardiovascular: Reports: Dyspnea on Exertion, Orthopnea. Denies: Chest Pain, Palpitations Gastrointestinal: Reports: No Symptoms Genitourinary: Reports: No Symptoms Neurological: Reports: No Symptoms Psychiatric: Reports: No Symptoms - Patient Data Vitals - Most Recent: Last Vital Signs Temp 98.3 F 06/12/17 08:33 Pulse 94 06/12/17 08:04 Resp 18 06/12/17 08:33 BP 142/84 H 06/12/17 08:04 Pulse Ox 92 L 06/12/17 08:39 Weight - Most Recent: 166 lb I&O - Last 24 Hours: Intake & Output 06/11/17 06/12/17 06/12/17 22:59 06:59 14:59 Intake Total 2450 600 Output Total 600 1600 Balance 1850 -1000 Lab Results Last 24 Hours: Laboratory Results - last 24 hr 06/12/17 06/12/17 06/12/17 Range/Units 06:35 06:35 06:35 WBC 7.68 (3.98-10.04) K/mm3 RBC 4.15 (3.98-5.22) M/mm3 Hgb 11.9 (11.2-15.7) gm/L Hct 36.6 (34.1-44.9) % MCV 88.2 (79.4-94.8) fl MCH 28.7 (25.6-32.2) pg MCHC 32.5 (32.2-35.5) g/dl RDW Std Deviation 42.8 (36.4-46.3) fL Plt Count 243 (182-369) K/mm3 MPV 9.6 (9.4-12.3) fl Neut % (Auto) 74.2 H (34.0-71.1) % Lymph % (Auto) 10.8 L (19.3-51.7) % [place] % (Auto) 14.1 H (4.7-12.5) % Eos % (Auto) 0.5 L (0.7-5.8) Baso % (Auto) 0.3 (0.1-1.2) % Neut # (Auto) 5.70 (1.56-6.13) K/mm3 Lymph # (Auto) 0.83 L (1.18-3.74) K/mm3 [place] # (Auto) 1.08 H (0.24-0.36) K/mm3 Eos # (Auto) 0.04 (0.04-0.36) K/mm3 Baso # (Auto) 0.02 (0.01-0.08) K/mm3 PT 24.3 H (8.0-13.0) SECONDS INR 2.25 Sodium 135 L (136-145) mEq/L Potassium 3.9 (3.5-5.1) mEq/L Chloride 96 L (98-107) mEq/L Carbon Dioxide 37 H (21-32) mEq/L Anion Gap 5.9 (5-15) BUN 6 L (7-18) mg/dL Creatinine 0.5 L (0.55-1.02) mg/dL Est Cr Clr Drug Dosing 86.60 mL/min Estimated GFR (MDRD) > 60 (>60) mL/min BUN/Creatinine Ratio 12.0 L (14-18) Glucose 101 (80-115) mg/dL Calcium 8.7 (8.5-10.1) mg/dL Magnesium 1.8 (1.8-2.4) mg/dl C-Reactive Protein 2.1 H* (<1.0) mg/dL TSH 3rd Generation (0.358-3.74) uIU/mL 06/12/17 Range/Units 06:35 WBC (3.98-10.04) K/mm3 RBC (3.98-5.22) M/mm3 Hgb (11.2-15.7) gm/L Hct (34.1-44.9) % MCV (79.4-94.8) fl MCH (25.6-32.2) pg MCHC (32.2-35.5) g/dl RDW Std Deviation (36.4-46.3) fL Plt Count (182-369) K/mm3 MPV (9.4-12.3) fl Neut % (Auto) (34.0-71.1) % Lymph % (Auto) (19.3-51.7) % [place] % (Auto) (4.7-12.5) % Eos % (Auto) (0.7-5.8) Baso % (Auto) (0.1-1.2) % Neut # (Auto) (1.56-6.13) K/mm3 Lymph # (Auto) (1.18-3.74) K/mm3 [place] # (Auto) (0.24-0.36) K/mm3 Eos # (Auto) (0.04-0.36) K/mm3 Baso # (Auto) (0.01-0.08) K/mm3 PT (8.0-13.0) SECONDS INR Sodium (136-145) mEq/L Potassium (3.5-5.1) mEq/L Chloride (98-107) mEq/L Carbon Dioxide (21-32) mEq/L Anion Gap (5-15) BUN (7-18) mg/dL Creatinine (0.55-1.02) mg/dL Est Cr Clr Drug Dosing mL/min Estimated GFR (MDRD) (>60) mL/min BUN/Creatinine Ratio (14-18) Glucose (80-115) mg/dL Calcium (8.5-10.1) mg/dL Magnesium (1.8-2.4) mg/dl C-Reactive Protein (<1.0) mg/dL TSH 3rd Generation 0.811 (0.358-3.74) uIU/mL Reynaldo Results Last 24 Hours: Microbiology 06/11/17 03:25 Respiratory Virus Panel (PCR) - Final Nasopharyngeal Swab 06/10/17 20:45 Aerobic Blood Culture - Preliminary Blood - Venous - Lab Draw NO GROWTH AFTER 1 DAY Anaerobic Blood Culture - Preliminary NO GROWTH AFTER 1 DAY 06/10/17 20:45 Aerobic Blood Culture - Preliminary Blood - Venous NO GROWTH AFTER 1 DAY Anaerobic Blood Culture - Preliminary NO GROWTH AFTER 1 DAY 06/11/17 03:25 Influenza Type A Antigen Screen - Final Nasal, Unspecified NEGATIVE INFLUENZA A VIRUS AG Influenza Type B Antigen Screen - Final NEGATIVE INFLUENZA B VIRUS AG Med Orders - Current: Current Medications Acetaminophen (Tylenol) 650 mg PO Q6H PRN PRN Reason: fever/pain Albuterol (Proventil Neb Soln) 2.5 mg NEB Q4HRRT PRN PRN Reason: sob Albuterol/Ipratropium (Duoneb 3.0-0.5 Mg/3 Ml) 3 ml NEB Q6HRRT [facility] Last Admin: 06/12/17 08:39 Dose: 3 ml Aspirin (Halfprin) 81 mg PO DAILY [facility] Last Admin: 06/11/17 13:56 Dose: 81 mg Docusate Sodium (Colace) 100 mg PO BID PRN PRN Reason: Constipation Furosemide (Lasix) 20 mg PO DAILY [facility] Ceftriaxone Sodium 2 gm/ (Sodium Chloride) 100 mls @ 100 mls/hr IV Q24H [facility] Last Admin: 06/11/17 13:57 Dose: 100 mls/hr Azithromycin 500 mg/ Sodium (Chloride) 250 mls @ 250 mls/hr IV Q24H [facility] Last Admin: 06/11/17 08:48 Dose: 250 mls/hr Losartan Potassium (Cozaar) 50 mg PO BEDTIME [facility] Last Admin: 06/11/17 20:33 Dose: 50 mg Magnesium Hydroxide (Milk Of Magnesia) 30 ml PO Q12H PRN PRN Reason: Constipation Methylprednisolone Sodium Succinate (Solu-Medrol) 40 mg IVPUSH Q12H [facility] Last Admin: 06/12/17 07:55 Dose: 40 mg Multivitamins (Thera) 1 each PO DAILY [facility] Ondansetron HCl (Zofran Odt) 4 mg PO Q4H PRN PRN Reason: nausea, able to take PO Ondansetron HCl (Zofran) 4 mg IV Q4H PRN PRN Reason: Nausea/Vomiting Pantoprazole Sodium (Protonix) 40 mg PO DAILY [facility] Propranolol HCl (Inderal La) 80 mg PO BID [facility] Last Admin: 06/11/17 20:33 Dose: 80 mg Temazepam (Restoril) 7.5 mg PO BEDTIME PRN PRN Reason: Insomnia Warfarin Sodium (Coumadin) 7.5 mg PO MoFr [facility] Warfarin Sodium (Coumadin) 5 mg PO SUTUWETHSA [facility] Last Admin: 06/11/17 19:35 Dose: 5 mg Warfarin Sodium (Pharmacy To Dose - Warfarin) 1 dose .XX ASDIRECTED [facility] Discontinued Medications Azithromycin (Zithromax) 500 mg PO ONETIME STA Stop: 06/11/17 00:12 Last Admin: 06/11/17 00:23 Dose: 500 mg Enoxaparin Sodium (Lovenox) 40 mg SUBCUT Q24H [facility] Last Admin: 06/11/17 09:37 Dose: Not Given Furosemide (Lasix) 20 mg PO DAILY [facility] Last Admin: 06/11/17 13:56 Dose: 20 mg Furosemide (Lasix) 40 mg IVPUSH NOW ONE Stop: 06/12/17 07:28 Last Admin: 06/12/17 07:55 Dose: 40 mg Sodium Chloride (Normal Saline) 1,000 mls @ 100 mls/hr IV ASDIRECTED [facility] Last Admin: 06/11/17 13:55 Dose: 100 mls/hr Sodium Chloride (Normal Saline) Confirm Administered Dose 250 mls @ as directed .ROUTE .STK-MED ONE Stop: 06/11/17 08:08 Last Admin: 06/11/17 09:38 Dose: Not Given Iopamidol (Isovue-300 (61%)) 80 ml IVPUSH ONETIME ONE Stop: 06/10/17 22:21 Last Admin: 06/10/17 23:06 Dose: 80 ml Magnesium Oxide (Magnesium Oxide) 800 mg PO ONETIME ONE Stop: 06/11/17 12:36 Last Admin: 06/11/17 13:56 Dose: 800 mg Oral Electrolytes (Thermotabs) 1 each PO BID [facility] Last Admin: 06/11/17 20:32 Dose: 1 each Warfarin Sodium (Coumadin) 5 mg PO SUTUWETHSA [facility] Last Admin: 06/11/17 14:03 Dose: Not Given Warfarin Sodium (Coumadin) 5 mg PO ONETIME ONE Stop: 06/12/17 18:01 - Exam Quality Assessment: Supplemental Oxygen, DVT Prophylaxis General: Alert, Oriented, Cooperative, No Acute Distress HEENT: Pupils Equal, EOMI, Mucous Membr. Moist/[place] Neck: Supple Lungs: Normal Respiratory Effort, Decreased Breath Sounds Cardiovascular: Irregular Rhythm GI/Abdominal Exam: Normal Bowel Sounds, Soft, Non-Tender (Female) Exam: Deferred Extremities: No Pedal Edema, Normal Capillary Refill Peripheral Pulses: 1+: Dorsalis Pedis (L), Dorsalis Pedis (R) Neurological: No New Focal Deficit Psy/Mental Status: Alert, Normal Affect, Normal Mood - Problem List & Annotations (1) Pneumonia SNOMED Code(s): 743361585 Code(s): J18.9 - PNEUMONIA, UNSPECIFIED ORGANISM Status: Acute Priority: High Current Visit: Yes Qualifiers: Pneumonia type: due to unspecified organism Laterality: bilateral Lung location: unspecified part of lung Qualified Code(s): J18.9 - Pneumonia, unspecified organism (2) Hypoxemia SNOMED Code(s): 115658004 Code(s): R09.02 - HYPOXEMIA Status: Acute Priority: High Current Visit : Yes (3) Hyponatremia SNOMED Code(s): 55547507 Code(s): E87.1 - HYPO-OSMOLALITY AND HYPONATREMIA Status: Acute Priority : High Current Visit: Yes (4) Generalized weakness SNOMED Code(s): 46650710 Code(s): R53.1 - WEAKNESS Status: Acute Priority: High Current Visit: Yes (5) Pulmonary nodules/lesions, multiple SNOMED Code(s): 786194865 Code(s): R91.8 - OTHER NONSPECIFIC ABNORMAL FINDING OF LUNG FIELD Status: Acute Priority: High Current Visit: Yes - Problem List Review Problem List Initiated/Reviewed/Updated: Yes - My Orders Last 24 Hours: My Active Orders 06/11/17 11:45 Aspirin [Halfprin] 81 mg PO DAILY 06/11/17 11:49 Ambulate [RC] QSHIFT Height and Weight [RC] 04 Oxygen Therapy [RC] PRN Up With Assistance [RC] ASDIRECTED VTE/DVT Education [RC] PER UNIT ROUTINE Vital Signs [RC] Q4HR Docusate Sodium [Colace] 100 mg PO BID PRN Magnesium Hydroxide [Milk of Magnesia] 30 ml PO Q12H PRN Ondansetron [Zofran ODT] 4 mg PO Q4H PRN Ondansetron [Zofran] 4 mg IV Q4H PRN Resuscitation Status Routine 06/11/17 11:51 Intake and Output [RC] 04,16 06/11/17 12:45 Warfarin Pharmacy to Dose [Pharmacy to Dose - Warfarin] 1 dose .XX ASDIRECTED 06/11/17 18:00 Warfarin [Coumadin] 5 mg PO SUTUWETHSA 06/11/17 21:00 Losartan [Cozaar] 50 mg PO BEDTIME Propranolol [Inderal LA] 80 mg PO BID 06/11/17 Dinner Heart Healthy Diet [DIET] 06/12/17 05:11 Chest 2V [CR] AM 06/12/17 06:35 VIT D2 D3,25-HYDROXY LC-MS/MS [REF] Routine 06/12/17 07:27 RT Incentive Spirometry [RC] Q2HWA RT Acapella [RESPCARE] Routine 06/12/17 08:00 methylPREDNISolone Sod Succ [Solu-MEDROL] 40 mg IVPUSH Q12H 06/12/17 09:00 Multivitamins,Therapeutic [Thera] 1 each PO DAILY Pantoprazole [ProTONIX] 40 mg PO DAILY 06/13/17 05:11 BASIC METABOLIC PANEL,BMP [CHEM] AM C-REACTIVE PROTEIN [CHEM] AM CBC WITH AUTO DIFF [HEME] AM INR,PT,PROTHROMBIN TIME [COAG] AM MAGNESIUM [CHEM] AM 06/13/17 09:00 Furosemide [Lasix] 20 mg PO DAILY 06/14/17 05:11 BASIC METABOLIC PANEL,BMP [CHEM] AM C-REACTIVE PROTEIN [CHEM] AM CBC WITH AUTO DIFF [HEME] AM INR,PT,PROTHROMBIN TIME [COAG] AM MAGNESIUM [CHEM] AM 06/14/17 18:00 Warfarin [Coumadin] 7.5 mg PO MoFr 06/15/17 05:11 BASIC METABOLIC PANEL,BMP [CHEM] AM C-REACTIVE PROTEIN [CHEM] AM CBC WITH AUTO DIFF [HEME] AM INR,PT,PROTHROMBIN TIME [COAG] AM MAGNESIUM [CHEM] AM - Plan Plan:: I/P: Acute Pneumonia- via chest CT -Rocephin and zithromax, will add zosyn for more atypical coverage with nodules and ground glass appearance -Supplemental O2 to keep saturations >90% -RT/Nebs/IS/FV -Repeat CXR tomorrow -Mycoplasma, s. pneumo, Resp viral panel ordered -IVF -Follow labs, CBC, CRP Multiple nodules noted in bilateral lungs on chest CT -? etiology; will treat as PNA initially but will need repeat CT and Pulmonology follow up -Discussed multiple nodules with patient and family today and that is essential that she have follow up of these, could be mass/cancer but will treat for PNA for now and follow up with CT with PCP or Pulmonology. Hypoxia -As above -Consider steroids- will discuss with Dr. Gregorio Hyponatremia -IVF with NS initially -May consider thermotabs if needed ? Hx of CHF -Obtain echo report that was done last week -Cont lasix 20mg daily for now, may need to DC pending sodium status. Generalized weakness -Etiology likely infectious as above however with multiple nodules noted on chest CT and weight loss concern for malignancy -Will check TSH and vit D levels -PT/OT Chronic: Other: GI/DVT prophylax daily labs RT/PT/OT CM for assist with DC planning- patient lives at home with and is with good family support. PCP is Hermila Sheets in [place] Patient is Full code status.
[2017-06-12] MEDS: Azithromycin 500 MG in Sodium Chloride 0.9% 250 ML IV SCH (09:35)
[2017-06-12] MEDS: Aspirin 81 MG Tab.EC PO SCH (09:42)
[2017-06-12] MEDS: Multivitamins,Therapeutic Tab PO SCH (09:42)
[2017-06-12] MEDS: Pantoprazole 40 MG Tab.CR PO SCH (09:42)
[2017-06-12] MEDS: Propranolol 80 MG Cap.ER PO SCH ×2 (09:42→20:11)
--- NOTE | 2017-06-12 11:35 | CR ---
Chest: Two views of the chest were obtained. Comparison: Previous chest x-ray of 06/10/[address] of 06/10/17. Heart size slightly enlarged. Minimal atelectasis within the left midlung is seen. Lungs otherwise appear to be clear. Pulmonary nodules and ground-glass appearance is below the resolution of chest x-ray to confirm resolution. Bony structures are osteopenic. Mild degenerative change is seen within the spine. Scoliosis is also present. Impression: 1. Minimal atelectasis within the left midlung. 2. Other incidental findings. Nothing acute is seen. Note: As mentioned above, previous CT findings are below the resolution of chest x-ray to confirm resolution. Diagnostic code #2
--- NOTE | 2017-06-12 13:23 | CR ---
Chest: Decubitus view of the chest was obtained with left side down. Comparison: Prior chest x-ray performed earlier on same day (9:58 AM) No layering pleural effusions are seen. Heart is enlarged. Lungs appear to be clear. Impression: 1. No layering left-sided pleural effusion. Diagnostic code #2
[2017-06-12] MEDS ORDERED: Warfarin 5 MG Tab PO ONE (18:00)
[2017-06-12] MEDS: Warfarin 5 MG Tab PO SCH (18:34)
[2017-06-12] MEDS: cefTRIAXone 2 GM in Sodium Chloride 0.9% 100 ML IV SCH (18:36)
[2017-06-12] MEDS: Losartan 100 MG Tab PO SCH (20:12)
[2017-06-13] MEDS: Albuterol/Ipratropium 3.0-0.5 MG/3 ML Neb Soln NEB SCH ×4 (03:08→21:03)
[2017-06-13] MEDS ORDERED: Bumetanide 1 MG/4 ML MDV IVPUSH ONE (07:23)
--- NOTE | 2017-06-13 07:34 | PCM.PN ---
- General Info Date of Service: 06/13/17 Admission Dx/Problem (Free Text): Admission Diagnosis/Problem Admission Diagnosis/Problem Pneumonia Doing better, looks better today. Minimal coughing. Still SOB and with SMITH but it is improved. She can carry on a conversation today without SOB so this is improvement. She was ambulatory yesterday, encouraged her to be more ambulatory today. She is using IS/FV. Functional Status: Reports: Pain Controlled, Tolerating Diet, Ambulating, Urinating, Incentive Spirometry. Denies: New Symptoms - Review of Systems General: Reports: Weakness, Fatigue, Malaise. Denies: Fever HEENT: Reports: No Symptoms Pulmonary: Reports: No Symptoms, Shortness of Breath. Denies: Cough, Sputum, Hemoptysis, Wheezing Cardiovascular: Reports: Dyspnea on Exertion. Denies: Chest Pain, Palpitations Gastrointestinal: Reports: No Symptoms Genitourinary: Reports: No Symptoms Neurological: Reports: No Symptoms. Denies: Dizziness Psychiatric: Reports: No Symptoms - Patient Data Vitals - Most Recent: Last Vital Signs Temp 99.5 F 06/12/17 20:04 Pulse 94 06/13/17 04:38 Resp 16 06/13/17 04:38 BP 126/68 06/13/17 04:38 Pulse Ox 97 06/13/17 04:38 Weight - Most Recent: 166 lb I&O - Last 24 Hours: Intake & Output 06/12/17 06/13/17 06/13/17 22:59 06:59 14:59 Intake Total 1360 600 Output Total 1350 Balance 10 600 Lab Results Last 24 Hours: Laboratory Results - last 24 hr 06/12/17 06/12/17 06/13/17 Range/Units 06:35 06:35 04:30 WBC 7.57 (3.98-10.04) K/mm3 RBC 4.34 (3.98-5.22) M/mm3 Hgb 12.4 (11.2-15.7) gm/L Hct 39.0 (34.1-44.9) % MCV 89.9 (79.4-94.8) fl MCH 28.6 (25.6-32.2) pg MCHC 31.8 L (32.2-35.5) g/dl RDW Std Deviation 44.4 (36.4-46.3) fL Plt Count 258 (182-369) K/mm3 MPV 9.7 (9.4-12.3) fl Neut % (Auto) 90.0 H (34.0-71.1) % Lymph % (Auto) 5.7 L (19.3-51.7) % [place] % (Auto) 4.1 L (4.7-12.5) % Eos % (Auto) 0 L (0.7-5.8) Baso % (Auto) 0.1 (0.1-1.2) % Neut # (Auto) 6.81 H (1.56-6.13) K/mm3 Lymph # (Auto) 0.43 L (1.18-3.74) K/mm3 [place] # (Auto) 0.31 (0.24-0.36) K/mm3 Eos # (Auto) 0.00 L (0.04-0.36) K/mm3 Baso # (Auto) 0.01 (0.01-0.08) K/mm3 Manual Slide Review Abnormal smear PT (8.0-13.0) SECONDS INR Sodium 135 L (136-145) mEq/L Potassium 3.9 (3.5-5.1) mEq/L Chloride 96 L (98-107) mEq/L Carbon Dioxide 37 H (21-32) mEq/L Anion Gap 5.9 (5-15) BUN 6 L (7-18) mg/dL Creatinine 0.5 L (0.55-1.02) mg/dL Est Cr Clr Drug Dosing 86.60 mL/min Estimated GFR (MDRD) > 60 (>60) mL/min BUN/Creatinine Ratio 12.0 L (14-18) Glucose 101 (80-115) mg/dL Calcium 8.7 (8.5-10.1) mg/dL Magnesium 1.8 (1.8-2.4) mg/dl C-Reactive Protein 2.1 H* (<1.0) mg/dL TSH 3rd Generation 0.811 (0.358-3.74) uIU/mL 06/13/17 06/13/17 Range/Units 04:30 04:30 WBC (3.98-10.04) K/mm3 RBC (3.98-5.22) M/mm3 Hgb (11.2-15.7) gm/L Hct (34.1-44.9) % MCV (79.4-94.8) fl MCH (25.6-32.2) pg MCHC (32.2-35.5) g/dl RDW Std Deviation (36.4-46.3) fL Plt Count (182-369) K/mm3 MPV (9.4-12.3) fl Neut % (Auto) (34.0-71.1) % Lymph % (Auto) (19.3-51.7) % [place] % (Auto) (4.7-12.5) % Eos % (Auto) (0.7-5.8) Baso % (Auto) (0.1-1.2) % Neut # (Auto) (1.56-6.13) K/mm3 Lymph # (Auto) (1.18-3.74) K/mm3 [place] # (Auto) (0.24-0.36) K/mm3 Eos # (Auto) (0.04-0.36) K/mm3 Baso # (Auto) (0.01-0.08) K/mm3 Manual Slide Review PT 19.6 H (8.0-13.0) SECONDS INR 1.82 Sodium 137 (136-145) mEq/L Potassium 4.2 (3.5-5.1) mEq/L Chloride 96 L (98-107) mEq/L Carbon Dioxide 39 H (21-32) mEq/L Anion Gap 6.2 (5-15) BUN 10 (7-18) mg/dL Creatinine 0.5 L (0.55-1.02) mg/dL Est Cr Clr Drug Dosing 86.60 mL/min Estimated GFR (MDRD) > 60 (>60) mL/min BUN/Creatinine Ratio 20.0 H (14-18) Glucose 145 H (80-115) mg/dL Calcium 9.2 (8.5-10.1) mg/dL Magnesium 1.9 (1.8-2.4) mg/dl C-Reactive Protein 1.7 H* (<1.0) mg/dL TSH 3rd Generation (0.358-3.74) uIU/mL Reynaldo Results Last 24 Hours: Microbiology 06/10/17 20:45 Aerobic Blood Culture - Preliminary Blood - Venous - Lab Draw NO GROWTH AFTER 2 DAYS Anaerobic Blood Culture - Preliminary NO GROWTH AFTER 2 DAYS 06/10/17 20:45 Aerobic Blood Culture - Preliminary Blood - Venous NO GROWTH AFTER 2 DAYS Anaerobic Blood Culture - Preliminary NO GROWTH AFTER 2 DAYS Med Orders - Current: Current Medications Acetaminophen (Tylenol) 650 mg PO Q6H PRN PRN Reason: fever/pain Albuterol (Proventil Neb Soln) 2.5 mg NEB Q4HRRT PRN PRN Reason: sob Albuterol/Ipratropium (Duoneb 3.0-0.5 Mg/3 Ml) 3 ml NEB Q6HRRT [facility] Last Admin: 06/13/17 03:08 Dose: 3 ml Aspirin (Halfprin) 81 mg PO DAILY [facility] Last Admin: 06/12/17 09:42 Dose: 81 mg Budesonide (Pulmicort) 0.5 mg NEB BIDRT [facility] Docusate Sodium (Colace) 100 mg PO BID PRN PRN Reason: Constipation Furosemide (Lasix) 20 mg PO DAILY [facility] Azithromycin 500 mg/ Sodium (Chloride) 250 mls @ 250 mls/hr IV Q24H [facility] Last Admin: 06/12/17 09:35 Dose: 250 mls/hr Ceftriaxone Sodium 2 gm/ (Dextrose/Water) 100 mls @ 200 mls/hr IV Q24H [facility] Last Admin: 06/12/17 14:43 Dose: 200 mls/hr Losartan Potassium (Cozaar) 50 mg PO BEDTIME [facility] Last Admin: 06/12/17 20:12 Dose: 50 mg Magnesium Hydroxide (Milk Of Magnesia) 30 ml PO Q12H PRN PRN Reason: Constipation Methylprednisolone Sodium Succinate (Solu-Medrol) 40 mg IVPUSH Q12H [facility] Last Admin: 06/12/17 20:06 Dose: 40 mg Multivitamins (Thera) 1 each PO DAILY [facility] Last Admin: 06/12/17 09:42 Dose: 1 each Ondansetron HCl (Zofran Odt) 4 mg PO Q4H PRN PRN Reason: nausea, able to take PO Ondansetron HCl (Zofran) 4 mg IV Q4H PRN PRN Reason: Nausea/Vomiting Pantoprazole Sodium (Protonix) 40 mg PO DAILY [facility] Last Admin: 06/12/17 09:42 Dose: 40 mg Propranolol HCl (Inderal La) 80 mg PO BID [facility] Last Admin: 06/12/17 20:11 Dose: 80 mg Temazepam (Restoril) 7.5 mg PO BEDTIME PRN PRN Reason: Insomnia Warfarin Sodium (Coumadin) 7.5 mg PO MoFr [facility] Warfarin Sodium (Coumadin) 5 mg PO SUTUWETHSA [facility] Last Admin: 06/12/17 18:34 Dose: 5 mg Warfarin Sodium (Pharmacy To Dose - Warfarin) 1 dose .XX ASDIRECTED [facility] Discontinued Medications Azithromycin (Zithromax) 500 mg PO ONETIME STA Stop: 06/11/17 00:12 Last Admin: 06/11/17 00:23 Dose: 500 mg Bumetanide (Bumex) 0.5 mg IVPUSH ONETIME ONE Stop: 06/13/17 07:24 Enoxaparin Sodium (Lovenox) 40 mg SUBCUT Q24H [facility] Last Admin: 06/11/17 09:37 Dose: Not Given Furosemide (Lasix) 20 mg PO DAILY [facility] Last Admin: 06/11/17 13:56 Dose: 20 mg Furosemide (Lasix) 40 mg IVPUSH NOW ONE Stop: 06/12/17 07:28 Last Admin: 06/12/17 07:55 Dose: 40 mg Ceftriaxone Sodium 2 gm/ (Sodium Chloride) 100 mls @ 100 mls/hr IV Q24H [facility] Last Admin: 06/12/17 18:36 Dose: Not Given Sodium Chloride (Normal Saline) 1,000 mls @ 100 mls/hr IV ASDIRECTED [facility] Last Admin: 06/11/17 13:55 Dose: 100 mls/hr Sodium Chloride (Normal Saline) Confirm Administered Dose 250 mls @ as directed .ROUTE .STK-MED ONE Stop: 06/11/17 08:08 Last Admin: 06/11/17 09:38 Dose: Not Given Iopamidol (Isovue-300 (61%)) 80 ml IVPUSH ONETIME ONE Stop: 06/10/17 22:21 Last Admin: 06/10/17 23:06 Dose: 80 ml Magnesium Oxide (Magnesium Oxide) 800 mg PO ONETIME ONE Stop: 06/11/17 12:36 Last Admin: 06/11/17 13:56 Dose: 800 mg Oral Electrolytes (Thermotabs) 1 each PO BID [facility] Last Admin: 06/12/17 09:20 Dose: 1 each Warfarin Sodium (Coumadin) 5 mg PO BRENNA [facility] Last Admin: 06/11/17 14:03 Dose: Not Given Warfarin Sodium (Coumadin) 5 mg PO ONETIME ONE Stop: 06/12/17 18:01 - Exam Quality Assessment: Supplemental Oxygen, DVT Prophylaxis General: Alert, Oriented, Cooperative, No Acute Distress HEENT: Pupils Equal, EOMI, Mucous Membr. Moist/[place] Neck: Supple Lungs: Normal Respiratory Effort, Decreased Breath Sounds Cardiovascular: Irregular Rhythm GI/Abdominal Exam: Normal Bowel Sounds, Soft, Non-Tender (Female) Exam: Deferred Extremities: No Pedal Edema, Normal Capillary Refill, Other (teds bilat) Peripheral Pulses: 1+: Dorsalis Pedis (L), Dorsalis Pedis (R) Neurological: No New Focal Deficit Psy/Mental Status: Alert, Normal Affect, Normal Mood - Problem List & Annotations (1) Pneumonia SNOMED Code(s): 549437550 Code(s): J18.9 - PNEUMONIA, UNSPECIFIED ORGANISM Status: Acute Priority: High Current Visit: Yes Qualifiers: Pneumonia type: due to unspecified organism Laterality: bilateral Lung location: unspecified part of lung Qualified Code(s): J18.9 - Pneumonia, unspecified organism (2) Hypoxemia SNOMED Code(s): 466645443 Code(s): R09.02 - HYPOXEMIA Status: Acute Priority: High Current Visit : Yes (3) Hyponatremia SNOMED Code(s): 66316948 Code(s): E87.1 - HYPO-OSMOLALITY AND HYPONATREMIA Status: Acute Priority : High Current Visit: Yes (4) Generalized weakness SNOMED Code(s): 60966412 Code(s): R53.1 - WEAKNESS Status: Acute Priority: High Current Visit: Yes (5) Pulmonary nodules/lesions, multiple SNOMED Code(s): 178078616 Code(s): R91.8 - OTHER NONSPECIFIC ABNORMAL FINDING OF LUNG FIELD Status: Acute Priority: High Current Visit: Yes - Problem List Review Problem List Initiated/Reviewed/Updated: Yes - My Orders Last 24 Hours: My Active Orders 06/12/17 06:35 VIT D2 D3,25-HYDROXY LC-MS/MS [REF] Routine 06/12/17 07:27 RT Incentive Spirometry [RC] Q2HWA RT Acapella [RESPCARE] Routine 06/12/17 08:00 methylPREDNISolone Sod Succ [Solu-MEDROL] 40 mg IVPUSH Q12H 06/12/17 09:00 Multivitamins,Therapeutic [Thera] 1 each PO DAILY Pantoprazole [ProTONIX] 40 mg PO DAILY 06/13/17 07:25 RT Aerosol Therapy [RC] ASDIRECTED 06/13/17 08:00 Budesonide [Pulmicort] 0.5 mg NEB BIDRT 06/13/17 09:00 Furosemide [Lasix] 20 mg PO DAILY 06/14/17 05:11 BASIC METABOLIC PANEL,BMP [CHEM] AM C-REACTIVE PROTEIN [CHEM] AM CBC WITH AUTO DIFF [HEME] AM INR,PT,PROTHROMBIN TIME [COAG] AM MAGNESIUM [CHEM] AM 06/14/17 18:00 Warfarin [Coumadin] 7.5 mg PO MoFr 06/15/17 05:11 BASIC METABOLIC PANEL,BMP [CHEM] AM C-REACTIVE PROTEIN [CHEM] AM CBC WITH AUTO DIFF [HEME] AM INR,PT,PROTHROMBIN TIME [COAG] AM MAGNESIUM [CHEM] AM - Plan Plan:: I/P: Acute Pneumonia- via chest CT -Rocephin and zithromax; yesterday considered addition of zosyn but was with good lab response so will keep rocephin and zithro for now -Supplemental O2 to keep saturations >90%--continues at 2L/NC -RT/Nebs/IS/FV -Repeat CXR was with ? lt sided effusion; lateral decubitus xray obtained and was without layering or concerns. No other acute changes noted on repeat CXR. Radiologist states nodules and ground glass appearance below level of xray to detect so unable to determine if improvements--essentially will need f/up CT as OP with PCP or Pulmonology. -Mycoplasma, s. pneumo, Resp viral panel ordered- all negative -IVF--DC'd -Follow labs, CBC, CRP-- all improving. Multiple nodules noted in bilateral lungs on chest CT -? etiology; will treat as PNA initially but will need repeat CT and Pulmonology follow up -Discussed multiple nodules with patient and family today and that is essential that she have follow up of these, could be mass/cancer but will treat for PNA for now and follow up with CT with PCP or Pulmonology. Hypoxia -As above -Supplemental oxygen-- currently at 2L/NC-- will likely need home O2 at discharge; RT to do qualifying study. -solumedrol 40mg BID -Nebs, add Pulmicort BID Hyponatremia---resolved, Na+ 137 today -IVF with NS initially -May consider thermotabs if needed Hx of CHF -Obtain echo report that was done last week---report rec'd with EF of 60-65% , grade 2 diastolic dysfunction, moderate to severely elevated right ventricular systolic pressure. No significant change from 12/21/14. -Cont home dose of lasix 20mg PO daily; rec'd IVP lasix yesterday with minimal diuresis; will try Bumex 0.5mg IVP x 1 today. -BNP was 1700 initially Generalized weakness -Etiology likely infectious as above however with multiple nodules noted on chest CT and weight loss concern for malignancy -Will check TSH and vit D levels--TSH WNL, vit D is pending. -PT/OT Chronic: HTN- cont home meds Afib- cont home meds/warfarin--pharmacy to dose; INR has been therapeutic GERD- cont home prilosec Other: GI/DVT prophylax--protonix and warfarin daily labs RT/PT/OT CM for assist with DC planning- patient lives at home with and is with good family support. -Will have HHC and PT along with increased home and community based services. PCP is Hermila Sheets in [place] Patient is Full code status.
[2017-06-13] MEDS: methylPREDNISolone Sodium Succinate 40 MG/1 ML SDV IVPUSH SCH ×2 (08:18→20:01)
[2017-06-13] MEDS: Azithromycin 500 MG in Sodium Chloride 0.9% 250 ML IV SCH (08:18)
[2017-06-13] MEDS: Propranolol 80 MG Cap.ER PO SCH ×2 (08:19→20:05)
[2017-06-13] MEDS: Aspirin 81 MG Tab.EC PO SCH (08:19)
[2017-06-13] MEDS: Pantoprazole 40 MG Tab.CR PO SCH (08:19)
[2017-06-13] MEDS: Multivitamins,Therapeutic Tab PO SCH (08:19)
[2017-06-13] MEDS ORDERED: Furosemide 20 MG Tab PO SCH (09:00)
[2017-06-13] MEDS: Budesonide 0.5 MG/2 ML Neb Susp NEB SCH ×2 (09:11→21:03)
--- NOTE | 2017-06-13 11:34 | PCM.SN ---
- Free Text/Narrative Note: Spoke with Dr. Sheela Sheets, Patient's PCP, reviewed case with her. Pulmonology appt is scheduled with Dr. [facility]. PFT's were done with PCP last week showing severe restrictive lung disease. Discussed echo results as well. Reviewed CT findings of multiple pulmonary nodules and discussed concerns. Reviewed that DC plan is for tomorrow +/- home oxygen pending progress. Will have patient f/up with Dr. Sheets early next week for recheck.
--- NOTE | 2017-06-13 13:33 | PCM.SN ---
- Free Text/Narrative Note: Spoke with Hotel Server, Dr. Song with [facility] in [place]. Reviewed patient case, CT of lung report, echo report- he had echo and reviewed it while on the phone with me. He feels nodules are not significant enought to cause the hypoxia and this is likely related to diastolic heart failure. Recommends increase diureses and follow up with PCP and Pulmonology. Reviewed that Pulmonology appt was scheduled for 07/17/17, asked if this was soon enough and he states yes that will be just fine. Will pass information along to patient and family and to PCP.
[2017-06-13] MEDS: Warfarin 5 MG Tab PO SCH (19:19)
[2017-06-13] MEDS: Losartan 100 MG Tab PO SCH (20:04)
[2017-06-14] MEDS: Albuterol/Ipratropium 3.0-0.5 MG/3 ML Neb Soln NEB SCH ×2 (03:33→08:35)
[2017-06-14] MEDS ORDERED: Budesonide 0.5 MG/2 ML Neb Susp NEB SCH (06:00)
[2017-06-14] MEDS ORDERED: Furosemide 40 MG Tab PO SCH (06:45)
[2017-06-14] MEDS ORDERED: predniSONE 20 MG Tab PO SCH (07:00)
[2017-06-14] MEDS: Pantoprazole 40 MG Tab.CR PO SCH ×2 (07:57→08:05)
[2017-06-14] MEDS: Multivitamins,Therapeutic Tab PO SCH ×2 (07:57→08:05)
[2017-06-14] MEDS: Propranolol 80 MG Cap.ER PO SCH ×2 (07:57→08:05)
[2017-06-14] MEDS: Azithromycin 250 MG Tab PO SCH ×2 (07:58→08:05)
[2017-06-14] MEDS: Aspirin 81 MG Tab.EC PO SCH ×2 (07:58→08:05)
--- NOTE | 2017-06-14 08:26 | PCM.DCSUM1 ---
Discharge Summary - Hospital Course Free Text/Narrative:: Kaitlin is a pleasant 72-year-old female admitted through the emergency room last night with pneumonia, hypoxia, dyspnea on exertion and orthopnea. The patient's daughter states that she has chronic shortness of breath and dyspnea on exertion (the patient believes that it is due to scoliosis), but that she has been progressively worsening over the past 2-3 weeks, to the point that patient has dyspnea even at rest for the past week. No wheezing, cough, fever, or chest pain. She has also had orthopnea and has had to sleep upright in the chair, not getting much rest the past week or so. No recent nausea, vomiting, constipation, diarrhea, or urinary symptoms. The patient states that her pants have not been getting tighter recently. Patient reports that she has actually lost 8 pounds over the past 1-2 months. The patient wears bilateral knee-high compression socks, but has not noticed an increase in lower extremity edema recently. The patient has had similar symptoms in the past, prior to starting Lasix in late 2014. PCP is Hermila Sheets in [place]. She did see Hermila last week for this worsening dyspnea. The patient did undergo testing including echocardiogram, what sounds like pulmonary function tests and other workup which was done between [place] and [facility]. The patient's daughter states that an echocardiogram performed during this time may have shown a pulmonary hypertension, but that they have not been given the official report. The patient is to follow-up/consult with a Clinical Research Tech on 07/17/2017 for these ongoing symptoms. She does have history of atrial fibrillation on chronic Coumadin therapy, also reports a mitral valve problem and sees [facility] in [place]. [place] Elena Castro. The patient does not have a formal diagnosis of lung disease, and does not have oxygen at home. Again PCP is Hermila Sheets in [place]. Patient is full CODE STATUS - Discharge Data Discharge Date: 06/14/17 Discharge Disposition: Home, Self-Care 01 Condition: Fair - Discharge Diagnosis/Problem(s) (1) Pneumonia SNOMED Code(s): 595854064 ICD Code: J18.9 - PNEUMONIA, UNSPECIFIED ORGANISM Status: Acute Priority : High Current Visit: Yes Qualifiers: Pneumonia type: due to unspecified organism Laterality: bilateral Lung location: unspecified part of lung Qualified Code(s): J18.9 - Pneumonia, unspecified organism (2) Hypoxemia SNOMED Code(s): 196063560 ICD Code: R09.02 - HYPOXEMIA Status: Acute Priority: High Current Visit : Yes (3) Hyponatremia SNOMED Code(s): 83259311 ICD Code: E87.1 - HYPO-OSMOLALITY AND HYPONATREMIA Status: Acute Priority : High Current Visit: Yes (4) Generalized weakness SNOMED Code(s): 87751251 ICD Code: R53.1 - WEAKNESS Status: Acute Priority: High Current Visit: Yes (5) Pulmonary nodules/lesions, multiple SNOMED Code(s): 495596118 ICD Code: R91.8 - OTHER NONSPECIFIC ABNORMAL FINDING OF LUNG FIELD Status: Acute Priority: High Current Visit: Yes - Patient Summary/Data Operative Procedure(s) Performed: None Complications: None Consults: Consultations 06/11/17 01:12 Consult to Case Management [CONS] Routine OT Evaluation and Treatment [CONS] Routine PT Evaluation and Treatment [CONS] Routine Labs Pending at D/C: None -Recommend BMP and Mag level early next week at f/up for increased lasix dose , K+ and renal f/up Recommended Follow-up Testing/Procedures: Patient DC instructions: Pt may need new home O2---pending O2 qualifying studies with RT this morning Have follow-up chest CT done in 4-6 weeks or at discretion of PCP. -I have discussed this with PCP, Dr. Sheets, she is aware Outpatient physical therapy. [facility] ([phone]) should call you to schedule this. [facility] It Program Manager ([phone]) should be in contact with you next week regarding increasing assistance at home (housekeeping, meals and other needs). 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 Please keep scheduled appointment with Clinical Research Tech on 07/17/17; I spoke with him and he felt that 07/17/17 was soon enough for evaluation. Follow up with PCP, Dr. Sheets in [place] early next week for recheck. Planned Operative Procedure(s) after DC: None Hospital Course: I/P: Acute Pneumonia- via chest CT -Rocephin and zithromax; yesterday considered addition of zosyn but was with good lab response so will keep rocephin and zithro for now -Supplemental O2 to keep saturations >90%--continues at 2L/NC -RT/Nebs/IS/FV -Repeat CXR was with ? lt sided effusion; lateral decubitus xray obtained and was without layering or concerns. No other acute changes noted on repeat CXR. Radiologist states nodules and ground glass appearance below level of xray to detect so unable to determine if improvements--essentially will need f/up CT as OP with PCP or Pulmonology. -Mycoplasma, s. pneumo, Resp viral panel ordered- all negative -IVF--DC'd -Follow labs, CBC, CRP-- all improving. Multiple nodules noted in bilateral lungs on chest CT -? etiology; will treat as PNA initially but will need repeat CT and Pulmonology follow up -Discussed multiple nodules with patient and family today and that is essential that she have follow up of these, could be mass/cancer but will treat for PNA for now and follow up with CT with PCP or Pulmonology. Hypoxia -As above -Supplemental oxygen-- currently at 2L/NC-- will likely need home O2 at discharge; RT to do qualifying study. -solumedrol 40mg BID---DC with prednisone taper -Nebs, add Pulmicort BID Hyponatremia---resolved, Na+ 137 today -IVF with NS initially -May consider thermotabs if needed Hx of CHF -Obtain echo report that was done last week---report rec'd with EF of 60-65% , grade 2 diastolic dysfunction, moderate to severely elevated right ventricular systolic pressure. No significant change from 12/21/14. -Cont home dose of lasix 20mg PO daily; rec'd IVP lasix yesterday with minimal diuresis; will try Bumex 0.5mg IVP x 1------will increase home lasix to 40mg PO QAM on discharge. Will need BMP to follow K+ and renal at f/up visit. -BNP was 1700 initially Generalized weakness -Etiology likely infectious as above however with multiple nodules noted on chest CT and weight loss concern for malignancy -Will check TSH and vit D levels--TSH WNL, vit D is pending. -PT/OT Chronic: HTN- cont home meds Afib- cont home meds/warfarin--pharmacy to dose; INR has been therapeutic GERD- cont home prilosec Other: GI/DVT prophylax--protonix and warfarin daily labs RT/PT/OT CM for assist with DC planning- patient lives at home with and is with good family support. -Will have HHC and PT along with increased home and community based services. PCP is Hermila Sheets in [place] Patient is Full code status. 06/13/17: Spoke with Dr. Sheela Sheets, Patient's PCP, reviewed case with her. Pulmonology appt is scheduled with Dr. [facility] with [facility]. PFT's were done with PCP last week showing severe restrictive lung disease. Discussed echo results as well. Reviewed CT findings of multiple pulmonary nodules and discussed concerns. Reviewed that DC plan is for tomorrow +/- home oxygen pending progress. Will have patient f/up with Dr. Sheets early next week for recheck. Also, Spoke with Clinical Research Tech, Dr. Song with [facility] in [place]. Reviewed patient case, CT of lung report, echo report- he had echo and reviewed it while on the phone with me. He feels nodules are not significant enought to cause the hypoxia and this is likely related to diastolic heart failure. Recommends increase diureses and follow up with PCP and Pulmonology. Reviewed that Pulmonology appt was scheduled for 07/17/17, asked if this was soon enough and he states yes that will be just fine. Will pass information along to patient and family and to PCP. - Patient Instructions Diet: Heart Healthy Diet, Usual Diet as Tolerated Activity: As Tolerated Driving: Do Not Drive Showering/Bathing: May Shower Notify Provider of: Fever, Increased Pain, Swelling and Redness, Nausea and/or Vomiting - Discharge Plan Prescriptions/Med Rec: Albuterol/Ipratropium [DuoNeb 3.0-0.5 MG/3 ML] 3 ml NEB Q6HRRT #1 box Furosemide [Lasix] 40 mg PO DAILY@0600 #30 tablet Prednisone [IJD: Prednisone] 10 mg PO DAILY #30 tab Home Medications: Home Meds Aspirin [Halfprin] 81 mg PO DAILY 02/02/15 [History] Chlorella 1,000 mg PO DAILY 02/02/15 [History] Garlic 1 cap PO DAILY 02/02/15 [History] Krill/Om-3/DHA/EPA/Phospho/Ast [Krill Oil 500 mg Softgel] 330 mg PO DAILY [History] Multivitamin [Multivitamins] 1 cap PO DAILY 02/02/15 [History] M[place]ie-3 Fatty Acids [M[place]ie-3] 1,000 mg PO DAILY 02/02/15 [History] Omeprazole [Prilosec] 20 mg PO DAILY 02/02/15 [History] Propranolol [Inderal LA] 80 mg PO BID 02/02/15 [History] Telmisartan [Micardis] 40 mg PO BEDTIME 02/02/15 [History] Ubidecarenone [COQ-10] 100 mg PO DAILY 02/02/15 [History] Warfarin Sodium [Coumadin] 7.5 mg PO MOFR 02/02/15 [History] Warfarin [Coumadin] 5 mg PO SUTUWETHSA 02/02/15 [History] Calcium Carb & Citrate/Vit D3 [Calcium + D3 ER Tablet] 1 tab PO DAILY 06/10/17 [ History] Albuterol/Ipratropium [DuoNeb 3.0-0.5 MG/3 ML] 3 ml NEB Q6HRRT #1 box 06/14/17 [ Rx] Furosemide [Lasix] 40 mg PO DAILY@0600 #30 tablet 06/14/17 [Rx] Prednisone [IJD: Prednisone] 10 mg PO DAILY #30 tab 06/14/17 [Rx] Patient Handouts: Hypoxemia, Hyponatremia, Weakness, Wpeo-ga-[id number], Pulmonary Nodule, Myft-hy-[id number], Community-Acquired Pneumonia, Adult Referrals: Hermila Sheets MD [Primary Care Provider] - - Discharge Summary/Plan Comment DC Time >30 min.: Yes (45 min) - Patient Data Vitals - Most Recent: Last Vital Signs Temp 97.9 F 06/14/17 03:50 Pulse 80 06/14/17 03:50 Resp 18 06/14/17 03:50 BP 135/86 06/14/17 03:50 Pulse Ox 93 L 06/14/17 03:50 Weight - Most Recent: 166 lb 9.6 oz I&O - Last 24 hours: Intake & Output 06/13/17 06/14/17 06/14/17 22:59 06:59 14:59 Intake Total 870 800 Balance 870 800 Lab Results - Last 24 hrs: Laboratory Results - last 24 hr 06/14/17 06/14/17 06/14/17 Range/Units 06:09 06:09 06:09 WBC 7.42 (3.98-10.04) K/mm3 RBC 4.24 (3.98-5.22) M/mm3 Hgb 12.2 (11.2-15.7) gm/L Hct 38.3 (34.1-44.9) % MCV 90.3 (79.4-94.8) fl MCH 28.8 (25.6-32.2) pg MCHC 31.9 L (32.2-35.5) g/dl RDW Std Deviation 45.2 (36.4-46.3) fL Plt Count 264 (182-369) K/mm3 MPV 10.0 (9.4-12.3) fl Neut % (Auto) 82.1 H (34.0-71.1) % Lymph % (Auto) 9.4 L (19.3-51.7) % Upson % (Auto) 8.4 (4.7-12.5) % Eos % (Auto) 0 L (0.7-5.8) Baso % (Auto) 0.0 L (0.1-1.2) % Neut # (Auto) 6.09 (1.56-6.13) K/mm3 Lymph # (Auto) 0.70 L (1.18-3.74) K/mm3 Upson # (Auto) 0.62 H (0.24-0.36) K/mm3 Eos # (Auto) 0.00 L (0.04-0.36) K/mm3 Baso # (Auto) 0.00 L (0.01-0.08) K/mm3 Manual Slide Review Normal smear PT 20.3 H (8.0-13.0) SECONDS INR 1.89 Sodium 137 (136-145) mEq/L Potassium 4.1 (3.5-5.1) mEq/L Chloride 97 L (98-107) mEq/L Carbon Dioxide 39 H (21-32) mEq/L Anion Gap 5.1 (5-15) BUN 15 (7-18) mg/dL Creatinine 0.6 (0.55-1.02) mg/dL Est Cr Clr Drug Dosing 72.17 mL/min Estimated GFR (MDRD) > 60 (>60) mL/min BUN/Creatinine Ratio 25.0 H (14-18) Glucose 121 H (80-115) mg/dL Calcium 9.2 (8.5-10.1) mg/dL Magnesium 1.9 (1.8-2.4) mg/dl C-Reactive Protein 0.4 (<1.0) mg/dL [place] Results - Last 24 hrs: Microbiology 06/10/17 20:45 Aerobic Blood Culture - Preliminary Blood - Venous - Lab Draw NO GROWTH AFTER 3 DAYS Anaerobic Blood Culture - Preliminary NO GROWTH AFTER 3 DAYS 06/10/17 20:45 Aerobic Blood Culture - Preliminary Blood - Venous NO GROWTH AFTER 3 DAYS Anaerobic Blood Culture - Preliminary NO GROWTH AFTER 3 DAYS Med Orders - Current: Current Medications Acetaminophen (Tylenol) 650 mg PO Q6H PRN PRN Reason: fever/pain Albuterol (Proventil Neb Soln) 2.5 mg NEB Q4HRRT PRN PRN Reason: sob Albuterol/Ipratropium (Duoneb 3.0-0.5 Mg/3 Ml) 3 ml NEB Q6HRRT [facility] Last Admin: 06/14/17 03:33 Dose: 3 ml Aspirin (Halfprin) 81 mg PO DAILY [facility] Last Admin: 06/14/17 08:05 Dose: Not Given Azithromycin (Zithromax) 250 mg PO DAILY [facility] Last Admin: 06/14/17 08:05 Dose: Not Given Budesonide (Pulmicort) 0.5 mg NEB BIDRT [facility] Docusate Sodium (Colace) 100 mg PO BID PRN PRN Reason: Constipation Furosemide (Lasix) 40 mg PO DAILY@0600 [facility] Last Admin: 06/14/17 07:58 Dose: 40 mg Losartan Potassium (Cozaar) 50 mg PO BEDTIME [facility] Last Admin: 06/13/17 20:04 Dose: 50 mg Magnesium Hydroxide (Milk Of Magnesia) 30 ml PO Q12H PRN PRN Reason: Constipation Multivitamins (Thera) 1 each PO DAILY [facility] Last Admin: 06/14/17 08:05 Dose: Not Given Ondansetron HCl (Zofran Odt) 4 mg PO Q4H PRN PRN Reason: nausea, able to take PO Ondansetron HCl (Zofran) 4 mg IV Q4H PRN PRN Reason: Nausea/Vomiting Pantoprazole Sodium (Protonix) 40 mg PO DAILY [facility] Last Admin: 06/14/17 08:05 Dose: Not Given Prednisone (Prednisone) 40 mg PO WITHBREAKFAST [facility] Last Admin: 06/14/17 07:57 Dose: 40 mg Propranolol HCl (Inderal La) 80 mg PO BID [facility] Last Admin: 06/14/17 08:05 Dose: Not Given Temazepam (Restoril) 7.5 mg PO BEDTIME PRN PRN Reason: Insomnia Warfarin Sodium (Coumadin) 7.5 mg PO MoFr [facility] Warfarin Sodium (Coumadin) 5 mg PO SUTUWETHSA [facility] Last Admin: 06/13/17 19:19 Dose: 5 mg Warfarin Sodium (Pharmacy To Dose - Warfarin) 1 dose .XX ASDIRECTED [facility] Discontinued Medications Azithromycin (Zithromax) 500 mg PO ONETIME STA Stop: 06/11/17 00:12 Last Admin: 06/11/17 00:23 Dose: 500 mg Budesonide (Pulmicort) 0.5 mg NEB BIDRT [facility] Last Admin: 06/13/17 21:03 Dose: 0.5 mg Bumetanide (Bumex) 0.5 mg IVPUSH ONETIME ONE Stop: 06/13/17 07:24 Last Admin: 06/13/17 08:18 Dose: 0.5 mg Enoxaparin Sodium (Lovenox) 40 mg SUBCUT Q24H [facility] Last Admin: 06/11/17 09:37 Dose: Not Given Furosemide (Lasix) 20 mg PO DAILY [facility] Last Admin: 06/11/17 13:56 Dose: 20 mg Furosemide (Lasix) 40 mg IVPUSH NOW ONE Stop: 06/12/17 07:28 Last Admin: 06/12/17 07:55 Dose: 40 mg Furosemide (Lasix) 20 mg PO DAILY [facility] [place] Last Admin: 06/13/17 08:20 Dose: 20 mg Ceftriaxone Sodium 2 gm/ (Sodium Chloride) 100 mls @ 100 mls/hr IV Q24H [facility] [place] Last Admin: 06/12/17 18:36 Dose: Not Given Sodium Chloride (Normal Saline) 1,000 mls @ 100 mls/hr IV ASDIRECTED [facility] [place] Last Admin: 06/11/17 13:55 Dose: 100 mls/hr Azithromycin 500 mg/ Sodium (Chloride) 250 mls @ 250 mls/hr IV Q24H [facility] [place] Last Admin: 06/13/17 08:18 Dose: 250 mls/hr Sodium Chloride (Normal Saline) Confirm Administered Dose 250 mls @ as directed .ROUTE .STK-MED ONE Stop: 06/11/17 08:08 Last Admin: 06/11/17 09:38 Dose: Not Given Ceftriaxone Sodium 2 gm/ (Dextrose/Water) 100 mls @ 200 mls/hr IV Q24H [facility] [place] Last Admin: 06/13/17 17:51 Dose: 200 mls/hr Iopamidol (Isovue-300 (61%)) 80 ml IVPUSH ONETIME ONE Stop: 06/10/17 22:21 Last Admin: 06/10/17 23:06 Dose: 80 ml Magnesium Oxide (Magnesium Oxide) 800 mg PO ONETIME ONE Stop: 06/11/17 12:36 Last Admin: 06/11/17 13:56 Dose: 800 mg Methylprednisolone Sodium Succinate (Solu-Medrol) 40 mg IVPUSH Q12H [facility] [place] Last Admin: 06/13/17 20:01 Dose: 40 mg Oral Electrolytes (Thermotabs) 1 each PO BID [facility] [place] Last Admin: 06/12/17 09:20 Dose: 1 each Warfarin Sodium (Coumadin) 5 mg PO SUTUWETHSA [facility] [place] Last Admin: 06/11/17 14:03 Dose: Not Given Warfarin Sodium (Coumadin) 5 mg PO ONETIME ONE Stop: 06/12/17 18:01
[2017-06-14 15:49] VITALS: BP 123/61
[2017-06-14] MEDS ORDERED: Warfarin 7.5 MG Tab PO SCH (18:00)
== END 2017-06-14 15:18 | disposition home or self-care (01) | DRG 194 ==
LOC: SUPCPDRO 19:42 → JD.ED 19:42 → JD.MS 06-11 00:58
PROVIDERS: ADMIT Internal Medicine Cardiovascular Disease; ATTEND Internal Medicine Cardiovascular Disease
DX: J18.9 Pneumonia, unspecified organism (principal); E87.1 Hypo-osmolality and hyponatremia; I50.30 Unspecified diastolic (congestive) heart failure; I50.9 Heart failure, unspecified; I48.2 Chronic atrial fibrillation; I11.0 Hypertensive heart disease with heart failure; R06.01 Orthopnea; R09.02 Hypoxemia; R53.1 Weakness; R91.8 Other nonspecific abnormal finding of lung field; K21.9 Gastro-esophageal reflux disease without esophagitis; R63.4 Abnormal weight loss; Z68.29 Body mass index [BMI] 29.0-29.9, adult; I34.1 Nonrheumatic mitral (valve) prolapse; Z88.1 Allergy status to other antibiotic agents; Z88.8 Allergy status to other drugs, medicaments and biological substances; Z91.040 Latex allergy status; Z79.01 Long term (current) use of anticoagulants; Z79.82 Long term (current) use of aspirin; Z79.899 Other long term (current) drug therapy
CPT/HCPCS: 36415; 36600; 71046; 71260; 80053; 82803; 83605; 83880; 84484; 85025; 85379; 85610; 85730; 87040 ×2; 93005; 99285; A9270; Q9967; 71045; 71045-26; 80048; 82306; 83735; 84443; 86140; 86738; 87486; 87581; 87633; 87798; 87804; 93010; 94640; 94667; 94668; 94761; 97110-GP; 97116-GP; 97162-GP; 97165-GO; 97530-GO; J0456; J0696; J1940; J2920; J7030; J7040; J7050; J7060

== ENCOUNTER 2017-07-08 12:13 | Emergency (ER) | payer MEDICARE, BC ==
[2017-07-08] MEDS ORDERED: predniSONE 20 MG Tab PO ONE (13:00)
[2017-07-08] MEDS ORDERED: Albuterol 0.083% 2.5 MG/3 ML Neb Soln NEB ONE (13:00)
[2017-07-08] MEDS: Sodium Chloride 0.9% 10 ML Syringe FLUSH PRN ×2 (13:15→14:32)
--- NOTE | 2017-07-08 14:19 | EDM.PDOC ---
ED HPI GENERAL MEDICAL PROBLEM - General Chief Complaint: Respiratory Problem Stated Complaint: SOB Time Seen by Provider: 07/08/17 12:35 Source of Information: Reports: Patient History Limitations: Reports: No Limitations - History of Present Illness INITIAL COMMENTS - FREE TEXT/NARRATIVE: Patient is a 72 y/o with history of pneumonia presents to the E.D. with shortness of breath. Patient states approximately one month ago was diagnosed with pneumonia and spent four days in the hospital. She was discharged June 142017 and continued on oral antibiotic and prednisone with tapering dose. Patient states once prednisone was stopped the shortness of breath gradually worsened. States over the weekend shortness of breath has drastically worsened. In addition has diagnosis of congestive heart failure and had her Lasix dose increased from 20 mg daily to 40 mg daily. She does not notice any increase in weight or edema to her lower extremities. Has been experiencing orthopnea and PND. On CT during evaluation in the hospital multiple nodules noted to the right lung. Follow-up with pulmonology was scheduled for first part of July with repeat chest CT obtain this week. Of note patients heart rate with admission to the ED varies from 95-120. She is in atrial fibrillation and is on Coumadin. O2 sats on examination were 87% on room air. Placed on nasal cannula at 2 L/m 99%. Patient states shortness of breath is worsened with any kind of exertion. States cough is chronic unchanged. Its Nonproductive. - Related Data Allergies Allergy/AdvReac Type Severity Reaction Status Date / Time latex Allergy Unknown Cannot Verified 07/08/17 12:26 Remember levofloxacin Allergy Other Verified 07/08/17 12:26 oxycodone HCl [From Percocet] Allergy Other Verified 07/08/17 12:26 Home Meds: Home Meds Aspirin [Halfprin] 81 mg PO DAILY 02/02/15 [History] Chlorella 1,000 mg PO DAILY 02/02/15 [History] Garlic 1 cap PO DAILY 02/02/15 [History] Krill/Om-3/DHA/EPA/Phospho/Ast [Krill Oil 500 mg Softgel] 330 mg PO DAILY [History] Multivitamin [Multivitamins] 1 cap PO DAILY 02/02/15 [History] [place]-3 Fatty Acids [[place]-3] 1,000 mg PO DAILY 02/02/15 [History] Omeprazole [Prilosec] 20 mg PO DAILY 02/02/15 [History] Propranolol [Inderal LA] 80 mg PO BID 02/02/15 [History] Telmisartan [Micardis] 40 mg PO BEDTIME 02/02/15 [History] Ubidecarenone [COQ-10] 100 mg PO DAILY 02/02/15 [History] Warfarin [Coumadin] 5 mg PO DAILY 02/02/15 [History] Calcium Carb & Citrate/Vit D3 [Calcium + D3 ER Tablet] 1 tab PO DAILY 06/10/17 [ History] Furosemide [Lasix] 40 mg PO DAILY@0600 #30 tablet 06/14/17 [Rx] Past Medical History HEENT History: Reports: Impaired Vision Cardiovascular History: Reports: Afib, Heart Failure Other Cardiovascular History: mitral valve prolapse Respiratory History: Reports: None Gastrointestinal History: Reports: GERD Genitourinary History: Reports: None Musculoskeletal History: Reports: Other (See Below) Other Musculoskeletal History: daughter reports scoliosis Neurological History: Reports: None Psychiatric History: Reports: None Endocrine/Metabolic History: Reports: None Hematologic History: Reports: None Immunologic History: Reports: None Oncologic (Cancer) History: Reports: Other (See Below) 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 Dermatologic History: Reports: None - Infectious Disease History Infectious Disease History: Reports: None - Past Surgical History GI Surgical History: Reports: Cholecystectomy Female Surgical History: Reports: Hysterectomy Social & Family History - Family History Family Medical History: Noncontributory - Tobacco Use Smoking Status *Q: Never Smoker - Caffeine Use Caffeine Use: Reports: Coffee, Soda Other Caffeine Use: decaff - Recreational Drug Use Recreational Drug Use: No - Living Situation & Occupation Living situation: Reports: , with Spouse Occupation: Retired ED ROS GENERAL - Review of Systems Review Of Systems: ROS reveals no pertinent complaints other than HPI. ED EXAM, GENERAL - Physical Exam Exam: See Below Exam Limited By: No Limitations General Appearance: Alert, WD/WN, No Apparent Distress Ears: Hearing Grossly Normal Nose: Normal Inspection Throat/Mouth: Normal Inspection, Normal Oropharynx, Normal Voice, No Airway Compromise Neck: Normal Inspection, Supple, Non-Tender, Other (No JVD) Respiratory/Chest: No Respiratory Distress, Lungs Clear, No Accessory Muscle Use , Chest Non-Tender, Decreased Breath Sounds Cardiovascular: Normal Peripheral Pulses, Tachycardia, Irregularly Irregular Peripheral Pulses: 4+: Radial (L), Radial (R) GI/Abdominal: Normal Bowel Sounds, Soft, Non-Tender, No Organomegaly, No Distention Back Exam: Normal Inspection Extremities: Normal Inspection, Non-Tender, Limited Range of Motion, Other Neurological: Alert, Oriented, CN II-XII Intact, Normal Cognition, No Motor/ Sensory Deficits Psychiatric: Normal Affect, Normal Mood Skin Exam: Warm, Dry, Intact, Normal Color Course - Vital Signs Last Recorded V/S: Last Vital Signs Temp 98.8 F 07/08/17 12:14 Pulse 95 07/08/17 12:14 Resp 20 07/08/17 12:14 BP 135/94 H 07/08/17 16:18 Pulse Ox 96 07/08/17 13:29 - Orders/Labs/Meds Orders: Active Orders 24 hr Category Date Time Status EKG Documentation Completion [RC] STAT Care 07/08/17 12:56 Active Peripheral IV Care [RC] . DIRECTED Care 07/08/17 12:59 Active RT Aerosol Therapy [RC] ASDIRECTED Care 07/08/17 13:01 Active Peripheral IV Insertion Adult [OM.PC] Stat Oth 07/08/17 12:56 Ordered Labs: Laboratory Tests 07/08/17 07/08/17 07/08/17 Range/Units 12:25 12:25 12:25 WBC 10.64 H (3.98-10.04) K/mm3 RBC 4.84 (3.98-5.22) M/mm3 Hgb 13.7 (11.2-15.7) gm/L Hct 42.6 (34.1-44.9) % MCV 88.0 (79.4-94.8) fl MCH 28.3 (25.6-32.2) pg MCHC 32.2 (32.2-35.5) g/dl RDW Std Deviation 45.8 (36.4-46.3) fL Plt Count 312 (182-369) K/mm3 MPV 10.4 (9.4-12.3) fl Neut % (Auto) 71.8 H (34.0-71.1) % Lymph % (Auto) 13.6 L (19.3-51.7) % [place] % (Auto) 12.7 H (4.7-12.5) % Eos % (Auto) 1.5 (0.7-5.8) Baso % (Auto) 0.3 (0.1-1.2) % Neut # (Auto) 7.64 H (1.56-6.13) K/mm3 Lymph # (Auto) 1.45 (1.18-3.74) K/mm3 [place] # (Auto) 1.35 H (0.24-0.36) K/mm3 Eos # (Auto) 0.16 (0.04-0.36) K/mm3 Baso # (Auto) 0.03 (0.01-0.08) K/mm3 PT (9.5-12.1) SECONDS INR APTT 47 H (24-31) SECONDS Puncture Site ABG pH (7.35-7.45) ABG pCO2 (35.0-45.0) mmHg ABG pO2 (80.0-100.0) mmHg ABG HCO3 (22.0-26.0) meq/L ABG O2 Saturation (96.0-97.0) % ABG Base Excess (-2-2.0) Vikas Test A-a Gradient mmHg O2 Delivery Device Oxygen Flow Rate FiO2 (21.00-100.00) % Sodium 136 (136-145) mEq/L Potassium 3.4 L (3.5-5.1) mEq/L Chloride 98 (98-107) mEq/L Carbon Dioxide 32 (21-32) mEq/L Anion Gap 9.4 (5-15) BUN 10 (7-18) mg/dL Creatinine 0.7 (0.55-1.02) mg/dL Est Cr Clr Drug Dosing 59.15 mL/min Estimated GFR (MDRD) > 60 (>60) mL/min BUN/Creatinine Ratio 14.3 (14-18) Glucose 96 (80-115) mg/dL Calcium 9.7 (8.5-10.1) mg/dL Magnesium (1.8-2.4) mg/dl Total Bilirubin 2.5 H (0.2-1.0) mg/dL AST 24 (15-37) U/L ALT 23 (14-59) U/L Alkaline Phosphatase 55 (46-116) U/L Troponin I < 0.017 (0.00-0.056) ng/mL C-Reactive Protein 4.8 H* (<1.0) mg/dL NT-Pro-B Natriuret Pep (0-125) pg/mL Total Protein 8.0 (6.4-8.2) g/dl Albumin 3.6 (3.4-5.0) g/dl Globulin 4.4 gm/dL Albumin/Globulin Ratio 0.8 L (1-2) 07/08/17 07/08/17 07/08/17 Range/Units 12:25 12:25 12:25 WBC (3.98-10.04) K/mm3 RBC (3.98-5.22) M/mm3 Hgb (11.2-15.7) gm/L Hct (34.1-44.9) % MCV (79.4-94.8) fl MCH (25.6-32.2) pg MCHC (32.2-35.5) g/dl RDW Std Deviation (36.4-46.3) fL Plt Count (182-369) K/mm3 MPV (9.4-12.3) fl Neut % (Auto) (34.0-71.1) % Lymph % (Auto) (19.3-51.7) % [place] % (Auto) (4.7-12.5) % Eos % (Auto) (0.7-5.8) Baso % (Auto) (0.1-1.2) % Neut # (Auto) (1.56-6.13) K/mm3 Lymph # (Auto) (1.18-3.74) K/mm3 [place] # (Auto) (0.24-0.36) K/mm3 Eos # (Auto) (0.04-0.36) K/mm3 Baso # (Auto) (0.01-0.08) K/mm3 PT 31.1 H (9.5-12.1) SECONDS INR 2.91 APTT (24-31) SECONDS Puncture Site ABG pH (7.35-7.45) ABG pCO2 (35.0-45.0) mmHg ABG pO2 (80.0-100.0) mmHg ABG HCO3 (22.0-26.0) meq/L ABG O2 Saturation (96.0-97.0) % ABG Base Excess (-2-2.0) Vikas Test A-a Gradient mmHg O2 Delivery Device Oxygen Flow Rate FiO2 (21.00-100.00) % Sodium (136-145) mEq/L Potassium (3.5-5.1) mEq/L Chloride (98-107) mEq/L Carbon Dioxide (21-32) mEq/L Anion Gap (5-15) BUN (7-18) mg/dL Creatinine (0.55-1.02) mg/dL Est Cr Clr Drug Dosing mL/min Estimated GFR (MDRD) (>60) mL/min BUN/Creatinine Ratio (14-18) Glucose (80-115) mg/dL Calcium (8.5-10.1) mg/dL Magnesium 1.8 (1.8-2.4) mg/dl Total Bilirubin (0.2-1.0) mg/dL AST (15-37) U/L ALT (14-59) U/L Alkaline Phosphatase (46-116) U/L Troponin I (0.00-0.056) ng/mL C-Reactive Protein (<1.0) mg/dL NT-Pro-B Natriuret Pep 2517 H (0-125) pg/mL Total Protein (6.4-8.2) g/dl Albumin (3.4-5.0) g/dl Globulin gm/dL Albumin/Globulin Ratio (1-2) 07/08/17 Range/Units 13:24 WBC (3.98-10.04) K/mm3 RBC (3.98-5.22) M/mm3 Hgb (11.2-15.7) gm/L Hct (34.1-44.9) % MCV (79.4-94.8) fl MCH (25.6-32.2) pg MCHC (32.2-35.5) g/dl RDW Std Deviation (36.4-46.3) fL Plt Count (182-369) K/mm3 MPV (9.4-12.3) fl Neut % (Auto) (34.0-71.1) % Lymph % (Auto) (19.3-51.7) % [place] % (Auto) (4.7-12.5) % Eos % (Auto) (0.7-5.8) Baso % (Auto) (0.1-1.2) % Neut # (Auto) (1.56-6.13) K/mm3 Lymph # (Auto) (1.18-3.74) K/mm3 [place] # (Auto) (0.24-0.36) K/mm3 Eos # (Auto) (0.04-0.36) K/mm3 Baso # (Auto) (0.01-0.08) K/mm3 PT (9.5-12.1) SECONDS INR APTT (24-31) SECONDS Puncture Site Rt radial ABG pH 7.39 (7.35-7.45) ABG pCO2 53.5 H (35.0-45.0) mmHg ABG pO2 74.0 L (80.0-100.0) mmHg ABG HCO3 31.4 H (22.0-26.0) meq/L ABG O2 Saturation 95.2 L (96.0-97.0) % ABG Base Excess 5.5 H (-2-2.0) Ivkas Test Positive A-a Gradient 39 mmHg O2 Delivery Device Nasal cannula Oxygen Flow Rate 2.0 FiO2 28.00 (21.00-100.00) % Sodium (136-145) mEq/L Potassium (3.5-5.1) mEq/L Chloride (98-107) mEq/L Carbon Dioxide (21-32) mEq/L Anion Gap (5-15) BUN (7-18) mg/dL Creatinine (0.55-1.02) mg/dL Est Cr Clr Drug Dosing mL/min Estimated GFR (MDRD) (>60) mL/min BUN/Creatinine Ratio (14-18) Glucose (80-115) mg/dL Calcium (8.5-10.1) mg/dL Magnesium (1.8-2.4) mg/dl Total Bilirubin (0.2-1.0) mg/dL AST (15-37) U/L ALT (14-59) U/L Alkaline Phosphatase (46-116) U/L Troponin I (0.00-0.056) ng/mL C-Reactive Protein (<1.0) mg/dL NT-Pro-B Natriuret Pep (0-125) pg/mL Total Protein (6.4-8.2) g/dl Albumin (3.4-5.0) g/dl Globulin gm/dL Albumin/Globulin Ratio (1-2) Meds: Medications Discontinued Medications Generic Name Dose Route Start Last Admin Trade Name Freq PRN Reason Stop Dose Admin Albuterol 2.5 mg 07/08/17 13:00 07/08/17 13:29 Proventil Neb Soln NEB 07/08/17 13:01 2.5 mg ONETIME ONE Administration Diltiazem HCl 10 mg 07/08/17 16:05 07/08/17 16:16 Diltiazem IVPUSH 07/08/17 16:06 10 mg ONETIME ONE Administration Furosemide 40 mg 07/08/17 14:43 07/08/17 15:27 Lasix IVPUSH 07/08/17 14:44 40 mg NOW ONE Administration Iopamidol 100 ml 07/08/17 14:22 07/08/17 14:32 Isovue-370 (76%) IVPUSH 07/08/17 14:23 100 ml ONETIME ONE Administration Potassium Chloride 40 meq 07/08/17 14:43 07/08/17 15:27 Klor-Con M20 PO 07/08/17 14:44 40 meq ONETIME ONE Administration Prednisone 40 mg 07/08/17 13:00 07/08/17 13:11 Prednisone PO 07/08/17 13:01 40 mg ONETIME ONE Administration Sodium Chloride 10 ml 07/08/17 12:56 07/08/17 14:32 Saline Flush FLUSH 10 ml ASDIRECTED PRN Administration Keep Vein Open Sodium Chloride 10 ml 07/08/17 14:22 07/08/17 15:27 Saline Flush FLUSH 07/08/17 14:23 10 ml ONETIME ONE Administration - Re-Assessments/Exams Free Text/Narrative Re-Assessment/Exam: EKG interpretation a rate of 98 variable 7145. Q waves in V3 1, V2 and near Q waves in V3. Old anteroseptal OK. Labs reviewed: White blood cell count 10.64, hemoglobin 13.7, neutrophil percentage is 71.8, neutrophil #7.64, INR 2.91 therapeutic range, sodium 136, potassium 3.4, CO2 32, AG 9.4, creatinine 0.7, glucose 96, troponin less than 0.017, CRP 4.8, and proBNP is 2517. ABG: PH 7.39, PCO2 53.5, PO2 74, HCO3 31.4, O2 sats duration 75.2, base excess 5.5. Reviewed chest x-ray with Dr. Armstrong with increased pulmonary vascularization noted. This concerning for exacerbation of congestive heart failure. She does have a history of right-sided heart failure. Echocardiogram was performed one week prior to discharge the hospital with an EF of 60-65%. Patient has grade 2 diastolic dysfunction, moderate to severely elevated right ventricular systolic pressure. No subcutaneous change from . Patient was discharged with increased dose of Lasix 40 mg every a.m. Patient denies any increased weight gain or edema to her lower extremities. Appointment with corporate intern this coming week for reevaluation. She is supposed to have a CT of the chest with IV contrast due to multiple nodules to both lungs this week.This has been ordered. 1431 Reassessment: Patient just returned from the CT. Has had no significant improvements with SOB with the above therapies. I will order 40mg of lasix and and potassium 40 mg by mouth. In addition ordered magnesium level. CT of the chest is pending. CT chest impression: Hazy groundglass appearance slightly improved from previous exam. Current findings most likely representing mild fibrosis. 7 mm nodule within the right lung base. Continue chest CT recommended in 1 year to further evaluate. Several very minimal nodules within the right upper lung which are's likely incidental. Other incidental findings. Nothing acute is seen. Discussed findings with patient. She did desaturate to 70% on room air with ambulated to the bathroom with increasing shortness of breath. Back on room air patient is 97%. Current vital signs blood pressure 131/82 with respiratory rate 24. A. fib range from 95-120. Ordered Cardizem 10 mg bolus. Will transfer patient patient to [place] admit to hospitalist with pulmonology consult. 07/08/17 16:[address] Parker airport control operator hospitalists at [facility]. He has accepted the patient. Ambulance has been contacted. Transfer paperwork completed. Departure - Departure Time of Disposition: 16:30 Disposition: DC/Tfer to Acute Hospital 02 Condition: Fair Clinical Impression: Hypoxia, Pulmonary fibrosis Acute exacerbation of CHF (congestive heart failure) Qualifiers: Heart failure type: right-sided Qualified Code(s): I50.813 - Acute on chronic right heart failure - Discharge Information Referrals: PCP,Not In Area [Primary Care Provider] - Forms: ED Department Discharge - My Orders Last 24 Hours: My Active Orders 07/08/17 12:56 EKG Documentation Completion [RC] STAT Peripheral IV Insertion Adult [OM.PC] Stat 07/08/17 12:59 Peripheral IV Care [RC] . DIRECTED 07/08/17 13:01 RT Aerosol Therapy [RC] ASDIRECTED - Assessment/Plan Last 24 Hours: My Active Orders 07/08/17 12:56 EKG Documentation Completion [RC] STAT Peripheral IV Insertion Adult [OM.PC] Stat 07/08/17 12:59 Peripheral IV Care [RC] . DIRECTED 07/08/17 13:01 RT Aerosol Therapy [RC] ASDIRECTED
[2017-07-08] MEDS ORDERED: Iopamidol 755 Mg/ML 100 ML Bottle IVPUSH ONE (14:22)
[2017-07-08] MEDS ORDERED: Sodium Chloride 0.9% 10 ML Syringe FLUSH ONE (14:22)
--- NOTE | 2017-07-08 14:34 | CR ---
Chest: Frontal view of the chest was obtained. Comparison: Prior chest x-ray of 06/12/17. Heart size is normal. Upper mediastinum is normal. Lungs are clear. Scoliosis is noted within the spine. Impression: 1. Incidental finding. Nothing acute is seen. Diagnostic code #2
[2017-07-08] MEDS ORDERED: Potassium Chloride 20 MEQ Tab.ER PO ONE (14:43)
[2017-07-08] MEDS ORDERED: Furosemide 40 MG/4 ML VIAL IVPUSH ONE (14:43)
--- NOTE | 2017-07-08 15:04 | CT ---
CT chest Technique: Multiple axial sections through the chest were obtained. Intravenous contrast was utilized. Comparison: Prior chest CT exam of 06/10/17. Findings: Small mediastinal lymph nodes are seen which have diminished in size from previous exam. Aorta shows no aneurysmal dilatation. Mild atherosclerotic change is seen. No pericardial thickening is seen. Several low density lesions are seen within the liver most likely representing cysts. Surgical clips are seen from previous cholecystectomy. Small nodular density is noted within the right lung base. This is believed to be stable from previous exam measures about 7 mm. Minimal scattered areas of groundglass appearance are seen which appear slightly improved from previous exam. Several others small pulmonary nodules noted within the right upper lung. Lungs otherwise are clear. No pulmonary embolism is seen. Bone window settings shows scoliosis and degenerative change within the spine. Impression: 1. Hazy groundglass appearance slightly improved from previous exam. Current findings most likely representing mild fibrosis. 2. 7 mm nodule within the right lung base. Continued chest CT recommended in one year to further evaluate. 3. Several very minimal nodules within the right upper lung which are likely incidental. 4. Other incidental findings. Nothing acute is seen. Diagnostic code #3
[2017-07-08] MEDS ORDERED: Diltiazem 25 MG/5 ML SDV IVPUSH ONE (16:05)
[2017-07-08 16:22] VITALS: BP 135/94
== END 2017-07-08 17:32 ==
LOC: JD.ED 12:13
DX: J84.10 Pulmonary fibrosis, unspecified (principal); I50.813 Acute on chronic right heart failure; I48.91 Unspecified atrial fibrillation; K21.9 Gastro-esophageal reflux disease without esophagitis; Z87.01 Personal history of pneumonia (recurrent); Z91.040 Latex allergy status; Z88.1 Allergy status to other antibiotic agents; Z88.5 Allergy status to narcotic agent; Z79.82 Long term (current) use of aspirin; Z79.899 Other long term (current) drug therapy; Z79.01 Long term (current) use of anticoagulants; Z90.49 Acquired absence of other specified parts of digestive tract
CPT/HCPCS: 36415; 36600; 71045; 71260; 80053; 82803; 83735; 83880; 84484; 85025; 85610; 85730; 86140; 93005; 94640; 96374; 96375; 99285; A9270; J1940; J3490; J7050; Q9967; 93010